=== PATIENT | female | born 1945 | race Caucasian/White ===

== ENCOUNTER → 2017-03-31 | Outpatient (CLI) | payer OTHER ==
[~2017-03-31] MED LIST: AMLO-114 PO; ASPCH81X PO; ATOR-24 PO; CARV12.52 PO; CLON0.5T3 PO; GLIM4TAB2 PO; HYDR2.5L TOP; INSDGI SC; LIDOCAINE PATCH EXT; LRT5 PO; METF-384 PO; MULT-513 PO; MULTCAP7 PO; RIVA1TAB4 PO; S-AD1TAB6 PO; TROL10LO EXT; VALS320T2 PO; VITAMIN D PO; ZOLP10TA6 PO
[2017-03-31 12:32] LABS: BASO % 0.3 %; BASO ABS # 0.02 K/uL (0-0.2); COMPLETE YES; EOS % 1.8 %; HEMATOCRIT 41.9 % (37-47); IG% 0.6 %; LYMPH % 30.3 %; LYMPH ABS # 2.37 K/uL (1.2-3.4); MEAN CELL VOLUME 95.4 fL (80-100); MEAN CORPUSCULAR HEMOGLOBIN 31.7 pg (25-34); MEAN CORPUSCULAR HGB CONC 33.2 g/dl (32-36); MEAN PLATELET VOLUME 11.5 fL (7.4-10.4); MONO % 8.7 %; NEUT % 58.3 %; PLATELET COUNT 155 K/uL (130-400); RED BLOOD COUNT 4.39 M/uL (4.2-5.4); WHITE BLOOD COUNT 7.81 K/uL (4.8-10.8)
[2017-03-31 12:38] LABS: CALCIUM 9.3 mg/dl (8.5-10.1)
[2017-03-31 12:41] LABS: ALT/SGPT 37 U/L (12-78); BLOOD UREA NITROGEN 18 mg/dl (7-18); BUN/CREATININE RATIO 24.1 (10-20); CARBON DIOXIDE 29 mmol/L (21-32); CHLORIDE 102 mmol/L (98-107); CHOLESTEROL 92 mg/dl (0-200); CREATININE 0.73 mg/dl (0.60-1.20); GLUCOSE 194 mg/dl (70-99); POTASSIUM 4.3 mmol/L (3.5-5.1); SODIUM 140 mmol/L (136-145); TRIGLYCERIDES 229 mg/dl (0-150); VERY LOW DENSITY LIPOPROT CALC 46 mg/dl
[2017-03-31 12:51] LABS: ALB/GLOB RATIO 0.8 (0.9-2); ALKALINE PHOSPHATASE 66 U/L (45-117); AST/SGOT 31 U/L (15-37); CHOLESTEROL/HDL RATIO 3.3; HDL CHOLESTEROL 28 mg/dl; LDL CHOLESTEROL CALCULATED 18 mg/dl
[2017-03-31 13:02] LABS: URINE APPEARANCE CLEAR (CLEAR); URINE BILIRUBIN NEG (NEG); URINE COLOR YELLOW; URINE NITRITE NEG (NEG); URINE PH 5.5 (4.5-7.5); URINE SPECIFIC GRAVITY 1.036 (1.000-1.030); UROBILINOGEN NEG (NEG); ZZUR CULT IF INDIC CLEAN CATCH NO
[2017-03-31 13:05] LABS: MANUAL MICROSCOPIC REQUIRED? NO; REVIEW REQ? NO
[2017-03-31 13:16] LABS: ESTIMATED AVERAGE GLUCOSE 200 mg/dl; HA1C FLAG Normal (Normal); RATIO 32.3 mcg/mg (0-30.0)
[2017-04-07 14:38] LABS: O&P SOURCE OTHER-STOOL
== END | disposition home or self-care (01) ==
LOC: C.LABBFT 10:00
PROVIDERS: ATTEND Internal Medicine Endocrinology, Diabetes & Metabolism
DX: R19.7 Diarrhea, unspecified (principal); E11.65 Type 2 diabetes mellitus with hyperglycemia; Z79.4 Long term (current) use of insulin

== ENCOUNTER → 2017-05-04 | Outpatient (CLI) | payer OTHER ==
[2017-05-04 16:27] LABS: BASO % 0.5 %; BASO ABS # 0.03 K/uL (0-0.2); COMPLETE YES; EOS % 3.9 %; HEMATOCRIT 40.3 % (37-47); IG% 0.2 %; LYMPH % 33.8 %; LYMPH ABS # 1.93 K/uL (1.2-3.4); MEAN CELL VOLUME 93.3 fL (80-100); MEAN CORPUSCULAR HEMOGLOBIN 31.3 pg (25-34); MEAN CORPUSCULAR HGB CONC 33.5 g/dl (32-36); MEAN PLATELET VOLUME 11.4 fL (7.4-10.4); MONO % 8.1 %; NEUT % 53.5 %; PLATELET COUNT 178 K/uL (130-400); RED BLOOD COUNT 4.32 M/uL (4.2-5.4); WHITE BLOOD COUNT 5.71 K/uL (4.8-10.8)
[2017-05-04 16:35] LABS: ALT/SGPT 68 U/L (12-78); AST/SGOT 64 U/L (15-37); BLOOD UREA NITROGEN 13 mg/dl (7-18); BUN/CREATININE RATIO 18.1 (10-20); CALCIUM 9.7 mg/dl (8.5-10.1); CARBON DIOXIDE 25 mmol/L (21-32); CHLORIDE 105 mmol/L (98-107); CREATININE 0.72 mg/dl (0.60-1.20); GLUCOSE 118 mg/dl (70-99); POTASSIUM 3.7 mmol/L (3.5-5.1); SODIUM 138 mmol/L (136-145)
[2017-05-04 16:38] LABS: ALB/GLOB RATIO 0.9 (0.9-2); ALKALINE PHOSPHATASE 67 U/L (45-117)
[2017-05-08 16:41] LABS: ALBUMIN 4.6 G/DL (3.8-4.8); FREE KAPPA 16.1 MG/L (3.3-19.4); FREE KAPPA/LAMBDA RATIO 0.69 (0.26-1.65); FREE LAMBDA 23.3 MG/L (5.7-26.3); GAMMA GLOBULIN 1.1 G/DL (0.8-1.7); MONOCLONAL PROTEIN BAND 1 0.8 G/DL (NOT DETECTED); TOTAL PROTEIN 8.5 G/DL (6.2-8.3)
== END | disposition home or self-care (01) ==
LOC: C.LABBFT 14:08
PROVIDERS: ATTEND Internal Medicine Hematology & Oncology
DX: D47.2 Monoclonal gammopathy (principal)

== ENCOUNTER → 2017-08-01 | Outpatient (CLI) | payer OTHER ==
[2017-08-01 12:26] LABS: BASO % 0.7 %; BASO ABS # 0.04 K/uL (0-0.2); COMPLETE YES; EOS % 3.7 %; HEMATOCRIT 39.3 % (37-47); IG% 0.2 %; LYMPH % 37.5 %; LYMPH ABS # 2.03 K/uL (1.2-3.4); MEAN CELL VOLUME 89.5 fL (80-100); MEAN CORPUSCULAR HEMOGLOBIN 30.1 pg (25-34); MEAN CORPUSCULAR HGB CONC 33.6 g/dl (32-36); MEAN PLATELET VOLUME 11.7 fL (7.4-10.4); MONO % 7.4 %; NEUT % 50.5 %; PLATELET COUNT 155 K/uL (130-400); RED BLOOD COUNT 4.39 M/uL (4.2-5.4); WHITE BLOOD COUNT 5.41 K/uL (4.8-10.8)
[2017-08-01 13:08] LABS: RATIO 264.1 mcg/mg (0-30.0)
[2017-08-01 13:13] LABS: ALT/SGPT 44 U/L (12-78); BLOOD UREA NITROGEN 14 mg/dl (7-18); BUN/CREATININE RATIO 21.8 (10-20); CALCIUM 9.7 mg/dl (8.5-10.1); CARBON DIOXIDE 25 mmol/L (21-32); CHLORIDE 103 mmol/L (98-107); CHOLESTEROL 109 mg/dl (0-200); CREATININE 0.66 mg/dl (0.60-1.20); GLUCOSE 173 mg/dl (70-99); POTASSIUM 3.7 mmol/L (3.5-5.1); SODIUM 139 mmol/L (136-145)
[2017-08-01 13:16] LABS: ALB/GLOB RATIO 0.8 (0.9-2); ALKALINE PHOSPHATASE 83 U/L (45-117); AST/SGOT 41 U/L (15-37); CHOLESTEROL/HDL RATIO 3.1; HDL CHOLESTEROL 35 mg/dl; LDL CHOLESTEROL CALCULATED 28 mg/dl; TRIGLYCERIDES 228 mg/dl (0-150); VERY LOW DENSITY LIPOPROT CALC 46 mg/dl
== END | disposition home or self-care (01) ==
LOC: C.LABBFT 08:25
PROVIDERS: ATTEND Nurse Practitioner
DX: E11.65 Type 2 diabetes mellitus with hyperglycemia (principal); R19.7 Diarrhea, unspecified; Z79.4 Long term (current) use of insulin; R10.819 Abdominal tenderness, unspecified site

== ENCOUNTER → 2017-09-29 | Outpatient (CLI) | payer OTHER ==
[2017-09-29 12:27] LABS: BASO % 0.5 %; BASO ABS # 0.03 K/uL (0-0.2); COMPLETE YES; EOS % 2.3 %; HEMATOCRIT 38.8 % (37-47); IG% 0.2 %; LYMPH % 24.4 %; MEAN CELL VOLUME 90.2 fL (80-100); MEAN CORPUSCULAR HEMOGLOBIN 30.7 pg (25-34); MEAN PLATELET VOLUME 11.3 fL (7.4-10.4); MONO % 11.3 %; NEUT % 61.3 %; PLATELET COUNT 184 K/uL (130-400); WHITE BLOOD COUNT 6.57 K/uL (4.8-10.8)
[2017-09-29 12:35] LABS: ALT/SGPT 36 U/L (12-78); BLOOD UREA NITROGEN 15 mg/dl (7-18); BUN/CREATININE RATIO 22.3 (10-20); CALCIUM 9.5 mg/dl (8.5-10.1); CARBON DIOXIDE 28 mmol/L (21-32); CHLORIDE 100 mmol/L (98-107); CREATININE 0.67 mg/dl (0.60-1.20); GLUCOSE 141 mg/dl (70-99); POTASSIUM 3.6 mmol/L (3.5-5.1); SODIUM 136 mmol/L (136-145)
[2017-09-29 12:37] LABS: ALB/GLOB RATIO 0.7 (0.9-2); ALKALINE PHOSPHATASE 103 U/L (45-117); AST/SGOT 37 U/L (15-37)
[2017-10-02 16:15] LABS: ALBUMIN 3.9 G/DL (3.8-4.8); FREE KAPPA 20.5 MG/L (3.3-19.4); FREE KAPPA/LAMBDA RATIO 0.71 (0.26-1.65); FREE LAMBDA 28.7 MG/L (5.7-26.3); GAMMA GLOBULIN 1.1 G/DL (0.8-1.7); MONOCLONAL PROTEIN BAND 1 0.7 G/DL (NOT DETECTED)
== END | disposition home or self-care (01) ==
LOC: C.LABBFT 08:53
PROVIDERS: ATTEND Internal Medicine Hematology & Oncology
DX: M85.80 Other specified disorders of bone density and structure, unspecified site (principal); D47.2 Monoclonal gammopathy

== ENCOUNTER → 2018-01-30 | Outpatient (CLI) | payer OTHER | END | disposition home or self-care (01) | LOC: C.PATHSPEC 16:08 | PROVIDERS: ATTEND Obstetrics & Gynecology | DX: N90.89 Other specified noninflammatory disorders of vulva and perineum (principal); L29.2 Pruritus vulvae ==

== ENCOUNTER → 2018-03-08 | Outpatient (CLI) | payer OTHER ==
[~2018-03-08] MED LIST changes: +OPTIRAY 320 IV PRN
--- NOTE | 2018-03-08 13:22 | DIAGNOSTIC IMAGING REPORT ---
ABD/PELVIS IV AND ORAL CONT CLINICAL HISTORY: 72 years-old Female presenting with R14.0 bloating. TECHNIQUE: Multidetector CT of the abdomen and pelvis was performed after the administration of oral and intravenous contrast. IV contrast: 94 mL of Optiray 320. A dose lowering technique was used consistent with the principles of ALARA (as low as reasonably achievable). COMPARISON: 05/24/2012. CT DOSE (mGy.cm): The estimated cumulative dose is 870.38 mGycm. FINDINGS: Graphite Pan Drier Tender topogram: Partially visualized pacer leads to the right atrium and right ventricular apex. Lung bases: Minimal basilar opacities, likely atelectasis. Normal heart size. Coronary artery and aortic valve calcification. Trace bilateral pleural effusions. No pericardial effusion. Liver: Relative hypertrophy of the left hepatic lobe and atrophy of the right hepatic lobe. The liver has a micronodular contour, suggesting cirrhosis. Allowing for the single phase of contrast, subcentimeter hypodensity at the hepatic dome (series 3 image 72), likely hepatic cyst or hamartoma. No other lesion. Patent hepatic vasculature. Biliary: No intrahepatic or extrahepatic biliary ductal dilatation. Normal gallbladder. Pancreas: Extensive vascular calcification in the region of the pancreatic head. Less likely these may be coarse parenchymal calcifications. Mild overall pancreatic parenchymal atrophy. The morphology of the pancreatic head could suggest an annular pancreas. Spleen: Normal. Adrenal glands: Subcentimeter nodule in the medial limb of the right adrenal gland is unchanged in size and indeterminate by density on this contrast-enhanced exam though stability since 2011 favors a benign adenoma. Left adrenal gland normal. Kidneys and ureters: Multiple small hypodensities in the bilateral kidneys likely cysts. No nephrolithiasis. Mild urothelial thickening greater on the right. No hydronephrosis. Mid to distal ureters poorly visualized secondary to the large volume ascites. Bladder: Incompletely evaluated secondary to underdistention. Pelvic organs: Calcified fibroids noted in the uterus. Ovaries and adnexa are within normal limits though mildly prominent for the patient's age. Bowel: Mild colonic wall thickening in the left colon, nonspecific. The appendix is normal. No bowel obstruction. Trace hiatal hernia may be present. Mild wall thickening of the stomach and small bowel also suggested. Peritoneal cavity: Large volume ascites. No free intraperitoneal gas. Hyperenhancing soft tissue cake within the omentum in the left anterior abdomen (series 3 image 275). Peritoneal thickening evident. Enhancing soft tissue noted along the right pelvic peritoneum (series 3 image 371). Additional soft tissue nodules suggested along the lateral right abdomen (series 3 image 243). Lymph nodes: Multiple enlarged pericaval and portacaval lymph nodes. An index node in the portacaval region measures 10 mm in the short axis (series 3 image 371). An index node in the aortocaval region measures 11 mm in the short axis (series 3 image 188). No pathologically enlarged lymph nodes in the pelvis. Vasculature: Atherosclerosis of the normal caliber abdominal aorta. IVC patent. No varices are apparent. Abdominal wall: Normal. Musculoskeletal: Normal. IMPRESSION: 1. Findings highly suspicious for peritoneal metastatic disease with hyperenhancing soft tissue cake within the omentum, peritoneal thickening, large volume ascites, and soft tissue peritoneal nodularity. Differential considerations include an ovarian/adnexal origin or primary peritoneal malignancy. 2. Upper abdominal lymphadenopathy suspicious for metastatic disease though these could be reactive given the presence of suspected cirrhosis. 3. Findings suggest cirrhosis. 4. Wall thickening of the colon could suggest portal colopathy. No splenomegaly or additional evidence of portal hypertension. 5. 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 Electronically signed by: Edmund Nagy M.D. 03/08/2018 1:20 PM Dictated Date/Time: 03/08/2018 1:05 PM
== END | disposition home or self-care (01) ==
LOC: C.CTS 12:16
PROVIDERS: ATTEND Physician Assistant Medical
DX: R14.0 Abdominal distension (gaseous) (principal); R59.0 Localized enlarged lymph nodes

== ENCOUNTER → 2018-05-18 | Outpatient (CLI) | payer OTHER ==
[~2018-05-18] MED LIST changes: -AMLO-114 PO; +AMLO10TA3 PO; -CLON0.5T3 PO; +CLON0.5T9 PO; +DULA0.5I SQ; +HYDR-5688 PO; +INSDGI INJ; -INSDGI SC; -LRT5 PO; -MULTCAP7 PO; -OPTIRAY 320 IV PRN; -RIVA1TAB4 PO; -S-AD1TAB6 PO; -VITAMIN D PO; +cbd oil TOP
[2018-05-18 12:37] LABS: ALBUMIN 2.8 gm/dl (3.4-5.0); ALKALINE PHOSPHATASE 85 U/L (45-117); ALT/SGPT 21 U/L (12-78); AST/SGOT 41 U/L (15-37); BLOOD UREA NITROGEN 15 mg/dl (7-18); CALCIUM 8.5 mg/dl (8.5-10.1); CARBON DIOXIDE 27 mmol/L (21-32); CREATININE 0.81 mg/dl (0.60-1.20); GLUCOSE 129 mg/dl (70-99); HEMATOCRIT 30.8 % (37-47); MEAN CELL VOLUME 90.1 fL (80-100); MEAN CORPUSCULAR HEMOGLOBIN 29.2 pg (25-34); MEAN CORPUSCULAR HGB CONC 32.5 g/dl (32-36); MEAN PLATELET VOLUME 9.8 fL (7.4-10.4); PLATELET COUNT 162 K/uL (130-400); POTASSIUM 3.6 mmol/L (3.5-5.1); RED CELL DISTRIBUTION WIDTH CV 14.8 % (11.5-14.5); RED CELL DISTRIBUTION WIDTH SD 48.2 fL (36.4-46.3); SODIUM 137 mmol/L (136-145); TOTAL PROTEIN 8.1 gm/dl (6.4-8.2); WHITE BLOOD COUNT 1.53 K/uL (4.8-10.8)
[2018-05-18 12:44] LABS: BASO % 0.7 %; BASO ABS # 0.01 K/uL (0-0.2); EOS % 3.9 %; EOS ABS # 0.06 K/uL (0-0.5); IG# 0.01 K/uL (0.00-0.02); LYMPH ABS # 1.01 K/uL (1.2-3.4); MONO % 9.8 %; MONO ABS # 0.15 K/uL (0.11-0.59); NEUT % 18.9 %; NEUT ABS # 0.29 K/uL (1.4-6.5)
== END | disposition home or self-care (01) ==
LOC: C.LABSPEC 11:46
PROVIDERS: ATTEND Internal Medicine Hematology & Oncology
DX: C56.9 Malignant neoplasm of unspecified ovary (principal)

== ENCOUNTER → 2018-05-25 | Outpatient (CLI) | payer OTHER ==
[2018-05-25 13:08] LABS: BASO % 0.4 %; BASO ABS # 0.02 K/uL (0-0.2); EOS % 1.2 %; EOS ABS # 0.07 K/uL (0-0.5); HEMATOCRIT 30.3 % (37-47); HEMOGLOBIN 9.7 g/dL (12.0-16.0); IG# 0.02 K/uL (0.00-0.02); LYMPH % 25.4 %; LYMPH ABS # 1.44 K/uL (1.2-3.4); MEAN CELL VOLUME 90.7 fL (80-100); MEAN PLATELET VOLUME 9.5 fL (7.4-10.4); MONO % 12.7 %; MONO ABS # 0.72 K/uL (0.11-0.59); NEUT % 59.9 %; NEUT ABS # 3.39 K/uL (1.4-6.5); PLATELET COUNT 181 K/uL (130-400); RED CELL DISTRIBUTION WIDTH CV 16.4 % (11.5-14.5); RED CELL DISTRIBUTION WIDTH SD 52.5 fL (36.4-46.3); WHITE BLOOD COUNT 5.66 K/uL (4.8-10.8)
[2018-05-25 13:29] LABS: ALT/SGPT 23 U/L (12-78); AST/SGOT 52 U/L (15-37); BLOOD UREA NITROGEN 20 mg/dl (7-18); CALCIUM 8.9 mg/dl (8.5-10.1); CARBON DIOXIDE 28 mmol/L (21-32); CREATININE 0.93 mg/dl (0.60-1.20); GLUCOSE 94 mg/dl (70-99); POTASSIUM 3.9 mmol/L (3.5-5.1); SODIUM 137 mmol/L (136-145)
[2018-05-25 13:31] LABS: ALKALINE PHOSPHATASE 102 U/L (45-117); TOTAL PROTEIN 8.3 gm/dl (6.4-8.2)
== END | disposition home or self-care (01) ==
LOC: C.LABSPEC 12:31
PROVIDERS: ATTEND Nurse Practitioner Family
DX: C56.9 Malignant neoplasm of unspecified ovary (principal)

== ENCOUNTER → 2018-06-01 | Outpatient (CLI) | payer OTHER ==
[~2018-06-01] MED LIST changes: +ASPI81TA28 PO; +CARV12.5 PO; +DEXA1TAB16 PO; +DULA1INJ SQ; +GLIM1TAB2 PO; +LPT20 PO; +MRPSR/15 PO; +OLAN1TAB7 PO; +ONDA-170 PO; +PROC10TA PO; +RIVA1TAB4 PO; +RXC/5 PO; +ZOLP10TA PO
[2018-06-01 12:30] LABS: EOS % 0.9 %; EOS ABS # 0.04 K/uL (0-0.5); HEMATOCRIT 30.8 % (37-47); HEMOGLOBIN 9.9 g/dL (12.0-16.0); IG# 0.01 K/uL (0.00-0.02); LYMPH % 29.7 %; LYMPH ABS # 1.27 K/uL (1.2-3.4); MEAN CELL VOLUME 90.1 fL (80-100); MEAN CORPUSCULAR HEMOGLOBIN 28.9 pg (25-34); MEAN CORPUSCULAR HGB CONC 32.1 g/dl (32-36); MEAN PLATELET VOLUME 10.1 fL (7.4-10.4); MONO % 0.9 %; MONO ABS # 0.04 K/uL (0.11-0.59); NEUT % 68.3 %; NEUT ABS # 2.91 K/uL (1.4-6.5); PLATELET COUNT 167 K/uL (130-400); RED CELL DISTRIBUTION WIDTH CV 15.9 % (11.5-14.5); RED CELL DISTRIBUTION WIDTH SD 52.2 fL (36.4-46.3); WHITE BLOOD COUNT 4.27 K/uL (4.8-10.8)
[2018-06-01 12:58] LABS: ALKALINE PHOSPHATASE 92 U/L (45-117); ALT/SGPT 31 U/L (12-78); AST/SGOT 61 U/L (15-37); BLOOD UREA NITROGEN 17 mg/dl (7-18); CALCIUM 9.2 mg/dl (8.5-10.1); CARBON DIOXIDE 29 mmol/L (21-32); CREATININE 0.69 mg/dl (0.60-1.20); GLUCOSE 119 mg/dl (70-99); POTASSIUM 3.8 mmol/L (3.5-5.1); SODIUM 134 mmol/L (136-145); TOTAL PROTEIN 8.2 gm/dl (6.4-8.2)
== END | disposition home or self-care (01) ==
LOC: C.LABSPEC 12:15
PROVIDERS: ATTEND Internal Medicine Hematology & Oncology
DX: C56.9 Malignant neoplasm of unspecified ovary (principal)

== ENCOUNTER 2018-06-08 09:47 | Emergency (ER) | payer OTHER ==
[~2018-06-08 09:47] MED LIST changes: -ASPI81TA28 PO; -CARV12.5 PO; -DEXA1TAB16 PO; -DULA1INJ SQ; -GLIM1TAB2 PO; -LPT20 PO; -MRPSR/15 PO; -OLAN1TAB7 PO; -ONDA-170 PO; -PROC10TA PO; -RIVA1TAB4 PO; -RXC/5 PO; -ZOLP10TA PO
[2018-06-08 09:53] VITALS: TEMP 36.7; Ht 170.2 cm
--- NOTE | 2018-06-08 10:00 | EMERGENCY ROOM VISIT NOTE ---
History Report prepared by Yvonne: Rula Eubanks Under the Supervision of: Dr. Eliu Laboy M.D. First contact with patient: 09:57 Chief Complaint: ABDOMINAL PAIN Stated Complaint: FLUID IN ABD History of Present Illness The patient is a 73 year old female who presents to the Emergency Room with complaints of a distended abdomen. She states she has fluid in her abdomen and needs to have a paracentesis (she has had 1 in the past). She describes her feeling as a fullness but has no associated abdominal pain. Her last bowel movement was this morning and is passing gas without difficulty. Pt denies any fevers, hematochezia, melena, vaginal bleeding, hematuria. Dr. Lozano [facility] is her oncologist. 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 A total of ten systems were reviewed and were otherwise negative. Past Medical & Surgical Medical Problems: (1) Diabetes (2) Heart disease (3) High blood pressure (4) Ovarian cancer Family History Cancer FH: diabetes mellitus High blood pressure Lung disease Social History Smoking Status: Never Smoker Smokeless Tobacco Use: No Alcohol Use: none Marital Status: Housing Status: lives with significant other Occupation Status: retired Current/Historical Medications Scheduled Amlodipine (Norvasc), 10 MG PO DAILY Aspirin (Aspirin Ec), 81 MG PO DAILY Atorvastatin (Lipitor), 20 MG PO DAILY Carvedilol (Coreg), 12.5 MG PO BIDM Dulaglutide (Trulicity), 1 PEN SQ WK Glimepiride (Glimepiride), 2-3 MG PO DAILY Olanzapine (Zyprexa), 2.5 MG PO UD Rivaroxaban (Xarelto), 20 MG PO DAILY Valsartan/Hctz (Diovan Hct 320MG/25MG), 1 TAB PO DAILY Zolpidem Tartrate (Ambien), 5-10 MG PO HS Scheduled PRN Dexamethasone (Dexamethasone), 20 MG PO UD PRN for CHEMO Morphine Sulfate (Morphine Sulfate ER), 15 MG PO BID PRN for Pain Ondansetron Hcl (Zofran), 8 MG PO Q8 PRN for Nausea Oxycodone HCl (Oxycodone HCl), 5-10 MG PO Q4 PRN for Pain Prochlorperazine Maleate (Compazine), 10 MG PO Q6H PRN for Nausea Allergies Coded Allergies: Sulfa Drugs (Verified Allergy, Mild, ITCHING, 06/08/18) ANDREW Inhibitors (Verified Allergy, Unknown, UNKNOWN, 06/08/18) Atorvastatin (Verified Allergy, Unknown, UNKNOWN, 06/08/18) CI Pigment Blue 63 (Verified Allergy, Unknown, UNKNOWN, 06/08/18) Citalopram (Verified Allergy, Unknown, UNKNOWN, 06/08/18) Duloxetine (Verified Allergy, Unknown, UNKNOWN, 06/08/18) Felodipine (Verified Allergy, Unknown, UNKNOWN, 06/08/18) Fluoxetine (Verified Allergy, Unknown, UNKNOWN, 06/08/18) POLLEN (Verified Allergy, Unknown, STUFFY NOSE CONGESTION, 06/08/18) Paroxetine (Verified Allergy, Unknown, UNKNOWN, 06/08/18) Pregabalin (Verified Allergy, Unknown, UNKNOWN, 06/08/18) Sertraline (Verified Allergy, Unknown, UNKNOWN, 06/08/18) Physical Exam Vital Signs Date Time Temp Pulse Resp B/P (MAP) Pulse Ox O2 Delivery O2 Flow Rate FiO2 06/08/18 12:06 70 20 149/73 96 06/08/18 09:53 36.7 61 18 156/82 95 Room Air Physical Exam Physical Exam GENERAL: She is oriented to person, place, and time. She appears well- developed and well-nourished. She does not appear distressed. HENT: Exam performed. Head: Normocephalic and atraumatic. Right Ear: External ear normal. No mastoid tenderness. Left Ear: External ear normal. No mastoid tenderness. Mouth/Throat: The oropharynx is clear and moist. No trismus in the jaw. No dental abscesses or uvula swelling. No oropharyngeal exudate or tonsillar abscesses. EYES: Conjunctivae and EOM are normal. Pupils are equal, round, and reactive to light. Right eye exhibits no discharge. Left eye exhibits no discharge. No scleral icterus. NECK: Normal range of motion. Neck supple. No JVD present. No spinous process tenderness present. No carotid bruit present. No rigidity. No tracheal deviation and normal range of motion present. No Brudzinski's sign and no Kernig 's sign noted. CV: Normal rate, regular rhythm, normal heart sounds and intact distal pulses. There is no peripheral edema. Palpable radial pulses bue. PULM/CHEST: Effort normal and breath sounds normal. No respiratory distress. No stridor. She has no wheezes. She has no rales. Chest Wall: She exhibits no tenderness. ABD: The abdomen is soft. Bowel sounds are normal. Abdomen is distended. Positive fluid wave. No mass is present. There is no tenderness. There is no rebound, no guarding, no Rubi's sign and no tenderness at McBurney's point. Rovsig negative MUSC/SKEL: Normal range of motion. There is no peripheral edema, tenderness or deformity. LYMPH: No cervical adenopathy. NEURO: She is alert and oriented to person, place, and time. She has normal strength. No cranial nerve deficit or sensory deficit. Coordination and gait normal. GCS eye subscore is 4. GCS verbal subscore is 5. GCS motor subscore is 6. Cerebellar tests wnl. SKIN: Skin is warm and dry. She is not diaphoretic. PSYCH: She has a normal mood and affect. Behavior is normal. Judgment and thought content normal. Medical Decision & Procedures Laboratory Results Laboratory results reviewed by [facility] ED Course 0958: The patient was evaluated in room B8. A complete history and physical exam was performed. 1124: Her labs from this morning were reviewed. WBC 1.11. Hemoglobin and platelet count stable. Renal profile wnl. Coagulation factors wnl. Vital signs are stable. Repeat abdominal exam shows no tenderness on palpation of the abdomen. There is little concern for SBP given that the pt has no abdominal tenderness and no fevers. Discussed the patient's case with Dr. Lozano. [facility]. He states he knows the patient well. He states he knows the pt has had ascites for quite some time. Given her labs this morning, he states he does not prefer that she have her paracentesis done while she is neutropenic and prefers for her to have it done as an outpatient. Neutropenia is thought to be due to the pt's chemotherapy. He also states that the patient follows up at [facility] in [place] and that the surgeons there prefer her not to have unnecessary paracenteses for her ascites. Given this, we will hold off on performing any paracentesis in the emergency department today. Patient will be discharged will follow up with Dr. Lozano in the office. She will have repeat labs done next week and when her white blood cell count has normalized she will have an outpatient paracentesis. Patient and family member at bedside are in agreement with this plan. DISCHARGE - Plan of care discussed with patient and questions answered. The patient was given both verbal and printed discharge instructions. The patient verbalized understanding and ability to comply. The patient is to seek outpatient follow up as noted in the discharge instructions. The patient verbalized understanding and ability to comply. The patient is discharged in stable condition. The patient was instructed to return for worsening symptoms. Medical Decision Her labs from this morning were reviewed. WBC 1.11. Hemoglobin and platelet count stable. Renal profile wnl. Coagulation factors wnl. Vital signs are stable. Repeat abdominal exam shows no tenderness on palpation of the abdomen. There is little concern for SBP given that the pt has no abdominal tenderness and no fevers. Discussed the patient's case with Dr. Lozano. [facility]. He states he knows the patient well. He states he knows the pt has had ascites for quite some time. Given her labs this morning, he states he does not prefer that she have her paracentesis done while she is neutropenic and prefers for her to have it done as an outpatient. Neutropenia is thought to be due to the pt 's chemotherapy. He also states that the patient follows up at [facility] in [place] and that the surgeons there prefer her not to have unnecessary paracenteses for her ascites. Given this, we will hold off on performing any paracentesis in the emergency department today. Patient will be discharged will follow up with Dr. Lozano in the office. She will have repeat labs done next week and when her white blood cell count has normalized she will have an outpatient paracentesis. Patient and family member at bedside are in agreement with this plan. DISCHARGE - Plan of care discussed with patient and questions answered. The patient was given both verbal and printed discharge instructions. The patient verbalized understanding and ability to comply. The patient is to seek outpatient follow up as noted in the discharge instructions. The patient verbalized understanding and ability to comply. The patient is discharged in stable condition. The patient was instructed to return for worsening symptoms. Medication Reconcilliation Current Medication List: was personally reviewed by me Consults Time Called: 1107 Consulting Physician: Dr. Singletary. [facility] Returned Call: 1124 Discussed the patient's case with Dr. Lozano. [facility]. He states he knows the patient well. He states he knows the pt has had ascites for quite some time. Given her labs this morning, he states he does not prefer that she have her paracentesis done while she is neutropenic and prefers for her to have it done as an outpatient. Neutropenia is thought to be due to the pt's chemotherapy. He also states that the patient follows up at [facility] in [place] and that the surgeons there prefer her not to have unnecessary paracenteses for her ascites. Impression Primary Impression: Ascites Scribe Attestation The scribe's documentation has been prepared under my direction and personally reviewed by me in its entirety. I confirm that the note above accurately reflects all work, treatment, procedures, and medical decision making performed by me. The chart was completed utilizing [employer] Speech voice recognition software. Grammatical errors, random word insertions, pronoun errors, and incomplete sentences are an occasional consequence of this system due to software limitations, ambient noise, and hardware issues. Any formal questions or concerns about the content, text, or information contained within the body of this dictation should be directly addressed to the physician for clarification. Departure Information Dispostion Home / Self-Care Referrals No Doctor, Assigned (PCP) Forms Call Back Authorization, HOME CARE DOCUMENTATION FORM, IMPORTANT VISIT INFORMATION Patient Instructions [facility] Additional Instructions Return to the emergency department if you develop difficulty breathing, fever greater than 100.4, or severe sharp abdominal pain. Problem Qualifiers Primary Impression: Ascites Ascites type: malignant Qualified Codes: R18.0 - Malignant ascites
[2018-06-08] MEDS ORDERED: ASPI81TA28 PO (10:55)
[2018-06-08] MEDS ORDERED: ZOLP10TA PO (10:55)
[2018-06-08] MEDS ORDERED: VALS320T2 PO (10:55)
[2018-06-08] MEDS ORDERED: PROC10TA PO (10:55)
[2018-06-08] MEDS ORDERED: CARV12.5 PO (10:55)
[2018-06-08] MEDS ORDERED: RIVA1TAB4 PO (10:55)
[2018-06-08] MEDS ORDERED: MRPSR/15 PO (10:55)
[2018-06-08] MEDS ORDERED: OLAN1TAB7 PO (10:55)
[2018-06-08] MEDS ORDERED: LPT20 PO (10:55)
[2018-06-08] MEDS ORDERED: DEXA1TAB16 PO (10:55)
[2018-06-08] MEDS ORDERED: DULA1INJ SQ (10:55)
[2018-06-08] MEDS ORDERED: RXC/5 PO (10:55)
[2018-06-08] MEDS ORDERED: GLIM1TAB2 PO (10:55)
[2018-06-08] MEDS ORDERED: AMLO10TA3 PO (10:55)
[2018-06-08] MEDS ORDERED: ONDA-170 PO (10:55)
[2018-06-08 12:06] VITALS: BP 149/73; PULSE 70; O2SAT 96
== END 2018-06-08 12:06 | disposition home or self-care (01) ==
LOC: C.EDB 09:48
DX: C56.9 Malignant neoplasm of unspecified ovary (principal); R18.0 Malignant ascites; D70.9 Neutropenia, unspecified; I10 Essential (primary) hypertension; Z79.82 Long term (current) use of aspirin; E11.9 Type 2 diabetes mellitus without complications; Z79.4 Long term (current) use of insulin; Z79.01 Long term (current) use of anticoagulants; Z88.2 Allergy status to sulfonamides; Z88.8 Allergy status to other drugs, medicaments and biological substances; Z91.02 Food additives allergy status; Z91.048 Other nonmedicinal substance allergy status

== ENCOUNTER → 2018-06-08 | Outpatient (CLI) | payer OTHER ==
[2018-06-08 10:05] LABS: HEMATOCRIT 29.2 % (37-47); HEMOGLOBIN 9.3 g/dL (12.0-16.0); MEAN CELL VOLUME 90.1 fL (80-100); MEAN CORPUSCULAR HEMOGLOBIN 28.7 pg (25-34); MEAN CORPUSCULAR HGB CONC 31.8 g/dl (32-36); MEAN PLATELET VOLUME 9.7 fL (7.4-10.4); PLATELET COUNT 168 K/uL (130-400); RED CELL DISTRIBUTION WIDTH CV 15.8 % (11.5-14.5); WHITE BLOOD COUNT 1.11 K/uL (4.8-10.8)
[2018-06-08 10:07] LABS: INR 1.2 (0.9-1.1)
[2018-06-08 10:23] LABS: BASO % 0.9 %; BASO ABS # 0.01 K/uL (0-0.2); EOS % 2.7 %; EOS ABS # 0.03 K/uL (0-0.5); LYMPH % 61.3 %; LYMPH ABS # 0.68 K/uL (1.2-3.4); MONO % 4.5 %; MONO ABS # 0.05 K/uL (0.11-0.59); NEUT % 30.6 %; NEUT ABS # 0.34 K/uL (1.4-6.5)
[2018-06-08 10:24] LABS: ALBUMIN 3.1 gm/dl (3.4-5.0); ALT/SGPT 28 U/L (12-78); AST/SGOT 43 U/L (15-37); BLOOD UREA NITROGEN 12 mg/dl (7-18); CALCIUM 9.2 mg/dl (8.5-10.1); CARBON DIOXIDE 28 mmol/L (21-32); CREATININE 0.68 mg/dl (0.60-1.20); GLUCOSE 155 mg/dl (70-99); POTASSIUM 3.5 mmol/L (3.5-5.1); SODIUM 135 mmol/L (136-145)
[2018-06-08 10:27] LABS: ALKALINE PHOSPHATASE 99 U/L (45-117); TOTAL PROTEIN 8.3 gm/dl (6.4-8.2)
== END | disposition home or self-care (01) ==
LOC: C.LABSPEC 09:42
PROVIDERS: ATTEND Internal Medicine Hematology & Oncology
DX: C56.9 Malignant neoplasm of unspecified ovary (principal)

== ENCOUNTER → 2018-06-11 | Outpatient (CLI) | payer OTHER ==
[~2018-06-11] MED LIST changes: -ASPCH81X PO; +ASPI81TA28 PO; -ATOR-24 PO; +CARV12.5 PO; -CARV12.52 PO; -CLON0.5T9 PO; +DEXA1TAB16 PO; -DULA0.5I SQ; +DULA1INJ SQ; +GLIM1TAB2 PO; -GLIM4TAB2 PO; -HYDR-5688 PO; -HYDR2.5L TOP; -INSDGI INJ; -LIDOCAINE PATCH EXT; +LPT20 PO; -METF-384 PO; +MRPSR/15 PO; -MULT-513 PO; +OLAN1TAB7 PO; +ONDA-170 PO; +PROC10TA PO; +RIVA1TAB4 PO; +RXC/5 PO; -TROL10LO EXT; +ZOLP10TA PO; -ZOLP10TA6 PO; -cbd oil TOP
[2018-06-11 09:16] LABS: ALBUMIN 3.1 gm/dl (3.4-5.0); BLOOD UREA NITROGEN 18 mg/dl (7-18); CALCIUM 9.2 mg/dl (8.5-10.1); CARBON DIOXIDE 28 mmol/L (21-32); CREATININE 0.98 mg/dl (0.60-1.20); GLUCOSE 303 mg/dl (70-99); POTASSIUM 4.1 mmol/L (3.5-5.1); SODIUM 132 mmol/L (136-145)
[2018-06-11 09:24] LABS: ALKALINE PHOSPHATASE 115 U/L (45-117); ALT/SGPT 33 U/L (12-78); AST/SGOT 43 U/L (15-37); TOTAL PROTEIN 8.6 gm/dl (6.4-8.2)
[2018-06-11 09:38] LABS: HEMATOCRIT 28.6 % (37-47); HEMOGLOBIN 9.3 g/dL (12.0-16.0); MEAN CELL VOLUME 90.2 fL (80-100); MEAN CORPUSCULAR HEMOGLOBIN 29.3 pg (25-34); MEAN CORPUSCULAR HGB CONC 32.5 g/dl (32-36); MEAN PLATELET VOLUME 9.6 fL (7.4-10.4); PLATELET COUNT 192 K/uL (130-400); RED CELL DISTRIBUTION WIDTH SD 50.7 fL (36.4-46.3); WHITE BLOOD COUNT 0.76 K/uL (4.8-10.8)
[2018-06-11 09:41] LABS: IG# 0.01 K/uL (0.00-0.02); LYMPH % 44.7 %; LYMPH ABS # 0.34 K/uL (1.2-3.4); MONO % 1.3 %; MONO ABS # 0.01 K/uL (0.11-0.59); NEUT % 52.7 %
== END | disposition home or self-care (01) ==
LOC: C.LABSPEC 08:43
PROVIDERS: ATTEND Internal Medicine Hematology & Oncology
DX: C56.9 Malignant neoplasm of unspecified ovary (principal)

== ENCOUNTER → 2018-06-15 | Outpatient (CLI) | payer OTHER ==
[~2018-06-15] MED LIST changes: +ENOX80IN SQ; +WARF5TAB90 PO
[2018-06-15 12:24] LABS: BASO % 0.2 %; BASO ABS # 0.01 K/uL (0-0.2); EOS % 1.1 %; EOS ABS # 0.05 K/uL (0-0.5); HEMATOCRIT 31.8 % (37-47); HEMOGLOBIN 10.3 g/dL (12.0-16.0); IG# 0.03 K/uL (0.00-0.02); LYMPH ABS # 1.56 K/uL (1.2-3.4); MEAN CELL VOLUME 90.3 fL (80-100); MEAN CORPUSCULAR HEMOGLOBIN 29.3 pg (25-34); MEAN CORPUSCULAR HGB CONC 32.4 g/dl (32-36); MEAN PLATELET VOLUME 9.5 fL (7.4-10.4); MONO % 11.9 %; MONO ABS # 0.53 K/uL (0.11-0.59); NEUT % 51.1 %; NEUT ABS # 2.28 K/uL (1.4-6.5); PLATELET COUNT 187 K/uL (130-400); RED CELL DISTRIBUTION WIDTH CV 16.8 % (11.5-14.5); WHITE BLOOD COUNT 4.46 K/uL (4.8-10.8)
[2018-06-15 12:43] LABS: ALBUMIN 3.2 gm/dl (3.4-5.0); ALKALINE PHOSPHATASE 110 U/L (45-117); ALT/SGPT 42 U/L (12-78); AST/SGOT 51 U/L (15-37); BLOOD UREA NITROGEN 16 mg/dl (7-18); CARBON DIOXIDE 27 mmol/L (21-32); CREATININE 0.82 mg/dl (0.60-1.20); GLUCOSE 144 mg/dl (70-99); POTASSIUM 3.6 mmol/L (3.5-5.1); SODIUM 137 mmol/L (136-145); TOTAL PROTEIN 8.6 gm/dl (6.4-8.2)
== END | disposition home or self-care (01) ==
LOC: C.LABSPEC 12:00
PROVIDERS: ATTEND Internal Medicine Hematology & Oncology
DX: C56.9 Malignant neoplasm of unspecified ovary (principal)

== ENCOUNTER 2018-06-22 14:41 | Emergency (ER) | payer OTHER ==
[~2018-06-22] VITALS: Ht 167.6 cm; Wt 63.0 kg
[~2018-06-22 14:41] MED LIST changes: -CLON0.5T9 PO; -ENOX80IN SQ; -OPTIRAY 320 IV PRN; -WARF5TAB90 PO
[2018-06-22 14:59] VITALS: TEMP 36.5; Ht 167.6 cm; Wt 63.0 kg
--- NOTE | 2018-06-22 16:15 | EMERGENCY ROOM VISIT NOTE ---
ED Visit Note First contact with patient: 15:48 CHIEF COMPLAINT: Pulmonary embolism on CT scan today HISTORY OF PRESENTING ILLNESS: This is a 73-year-old female with past medical history of ovarian cancer, atrial fibrillation on Xarelto, pacemaker, hypertension, type 2 diabetes, who presents to the emergency department with concern for abnormal CT scan today. Patient states that she was notified by her oncologist that her CT chest showed a pulmonary embolism. Patient is on treatment for ovarian cancer, her last chemotherapy treatment was 2-1/2 weeks ago, she is not receiving any radiation. She reports chronic back pain and shortness of breath secondary to abdominal ascites, but denies any increase in her pain or shortness of breath, denies chest pain, denies cough or hemoptysis, denies any recent trauma or falls, and denies any recent long trips. She denies any leg pain or swelling. She is on Xarelto for management of her atrial fibrillation, she denies any previous history of blood clots. She does note that she stopped her Xarelto for 1 day this week to have a paracentesis done on Monday, but she denies missing any other doses recently. REVIEW OF SYSTEMS: A complete 10 point review of systems was reviewed with the patient with pertinent positives and negatives as per history of present illness. All else were negative. PAST MEDICAL HISTORY: Reviewed in chart, see problem list below. SOCIAL HISTORY: Lives at home with her . Denies tobacco use. ALLERGIES: Reviewed in chart, see below. PHYSICAL EXAM: CONSTITUTIONAL: Pleasant and cooperative. No acute distress. Well appearing and well nourished. HEENT: Normocephalic, atraumatic. Pupils equal, round and reactive to light, EOMI. TMs normal. Pharynx normal. NECK: Supple, full active range of motion without discomfort. RESPIRATORY: Clear to auscultation bilaterally with no wheezing, crackles, rhonchi or stridor. Equal expansion bilaterally. CARDIOVASCULAR: Regular rate and rhythm with no murmurs, rubs or gallops. Normal peripheral perfusion. No edema. GASTROINTESTINAL: Soft, nontender, distended. No palpable masses or HSM. Bowel sounds present in all quadrants. MUSCULOSKELETAL: Full range of motion of all joints without discomfort. INTEGUMENTARY: No rash or other significant dermatologic conditions noted. NEUROLOGIC: Alert and oriented X 4 with normal affect. Normal strength and sensation in all 4 extremities. No focal neurologic deficits noted. Normal speech. Normal gait observed. ED COURSE AND MEDICAL DECISION MAKING: CC: Patient presenting with complaint of pulmonary embolism on CT scan today DIFFERENTIAL DIAGNOSIS: Includes, but not limited to pulmonary embolism, DVT, failed anticoagulation therapy, among others. INTERPRETATION OF LABS: No leukocytosis or leukopenia, mild anemia consistent with baseline, normal platelets, no significant electrolyte abnormalities, normal renal function, normal liver enzymes. Coagulation factors within normal limits. IMAGING: ULTRASOUND VENOUS DOPPLER LWR EXT BILA CLINICAL HISTORY: Lower extremity swelling COMPARISON STUDY: No previous studies for comparison. FINDINGS: Real-time and color flow Doppler imaging were performed. Flow was seen within the femoral, popliteal and calf veins with no intraluminal thrombus demonstrated. The saphenous vein is patent. IMPRESSION: No evidence of lower extremity DVT. EKG: Shows an atrial paced rhythm with a rate of 61 bpm, left axis deviation, no acute ST or T-wave changes, no ectopy, no significant change when compared to previous EKG from 01/19/2012 by my interpretation. MEDICATION RECONCILIATION: I attest that I have personally reviewed the patient 's current medication list. INITIAL VITAL SIGNS REVIEW: I reviewed the patient's initial vital signs and interpret them as follows: T: Afebrile; BP: Normotensive; HR: Within normal limits; RR: Within normal limits; Pulse Ox: Within normal limits on room air. Blood pressure screening: The patient was found to have normal blood pressure on screening and does not require follow-up for repeat blood pressure check. SUMMARY: Patient was evaluated at bedside, history and physical exam performed. Patient is alert and oriented, in no acute distress, resting calmly in the stretcher. Lungs are clear, no respiratory distress, labored breathing, tachypnea, or hypoxia. Calves are soft and nontender with no evidence of swelling. Orders were placed at bedside for labs, bilateral duplex to evaluate for DVT. Patient discussed with Dr. Luciano, who agrees with my assessment and plan. Labs and imaging reviewed as above, no evidence for DVT. I spoke on the phone with Dr. Prabhakar, oncology, regarding the patient's PE and plan for anticoagulation. He recommended switching the patient to Coumadin and bridging her with Lovenox 1.5 mg/kg daily and to have her follow-up with Dr. Rivas for continued management. Patient was given her first dose of Lovenox and Coumadin in the ED, and prescriptions for these medications were sent to the pharmacy. Given that the patient has been hemodynamically stable and asymptomatic, I feel that she is safe for discharge home. Patient reassessed multiple times throughout ED stay, she has remained stable and without complaint. Patient was updated on all results and plan for discharge, she was encouraged to follow closely with her PCP. Rx for repeat PT/INR was provided to the patient she was encouraged to have this done on Monday. apartment assistant manager was involved to help assist with arranging a follow-up appointment with Dr. Rivas next week. The patient and her have performed subcutaneous injections frequently in the past, they were comfortable doing the Lovenox shots at home. Patient was also given strict return precautions should her symptoms worsen, she verbalized understanding. Patient was discharged home in stable condition and ambulatory. Problem List Medical Problems: (1) Diabetes Status: Chronic (2) Heart disease Status: Chronic (3) High blood pressure Status: Chronic (4) Ovarian cancer Status: Chronic Current/Historical Medications Scheduled Amlodipine (Norvasc), 10 MG PO DAILY Aspirin (Aspirin Ec), 81 MG PO DAILY Atorvastatin (Lipitor), 20 MG PO DAILY Carvedilol (Coreg), 12.5 MG PO BIDM Dulaglutide (Trulicity), 1 PEN SQ WK Enoxaparin (Lovenox), 90 MG SQ DAILY Glimepiride (Glimepiride), 2-3 MG PO DAILY Rivaroxaban (Xarelto), 20 MG PO DAILY Valsartan/Hctz (Diovan Hct 320MG/25MG), 1 TAB PO DAILY Warfarin Sodium (Coumadin), 5 MG PO DAILY Zolpidem Tartrate (Ambien), 5-10 MG PO HS Scheduled PRN Morphine Sulfate (Morphine Sulfate ER), 15 MG PO BID PRN for Pain Oxycodone HCl (Oxycodone HCl), 5-10 MG PO Q4 PRN for Pain Allergies Coded Allergies: Sulfa Drugs (Verified Allergy, Mild, ITCHING, 06/22/18) ANDREW Inhibitors (Verified Allergy, Unknown, UNKNOWN, 06/22/18) CI Pigment Blue 63 (Verified Allergy, Unknown, UNKNOWN, 06/22/18) Citalopram (Verified Allergy, Unknown, UNKNOWN, 06/22/18) Duloxetine (Verified Allergy, Unknown, UNKNOWN, 06/22/18) Felodipine (Verified Allergy, Unknown, UNKNOWN, 06/22/18) Fluoxetine (Verified Allergy, Unknown, UNKNOWN, 06/22/18) POLLEN (Verified Allergy, Unknown, STUFFY NOSE CONGESTION, 06/22/18) Paroxetine (Verified Allergy, Unknown, UNKNOWN, 06/22/18) Pregabalin (Verified Allergy, Unknown, UNKNOWN, 06/22/18) Sertraline (Verified Allergy, Unknown, UNKNOWN, 06/22/18) Vital Signs Date Time Temp Pulse Resp B/P (MAP) Pulse Ox O2 Delivery O2 Flow Rate FiO2 06/22/18 19:50 67 18 155/75 99 06/22/18 18:33 67 18 197/94 97 Room Air 06/22/18 18:31 67 06/22/18 16:25 94 Room Air 06/22/18 16:25 60 16 157/73 96 Room Air 06/22/18 14:59 36.5 62 18 123/73 96 Room Air Laboratory Results 06/22/18 16:40 Red Blood Count 3.46, Mean Corpuscular Volume 89.6, Mean Corpuscular Hemoglobin 29.5, Mean Corpuscular Hemoglobin Concent 32.9, Mean Platelet Volume 9.8, Neutrophils (%) (Auto) 63.2, Lymphocytes (%) (Auto) 30.1, Monocytes (%) (Auto) 5.8, Eosinophils (%) (Auto) 0.7, Basophils (%) (Auto) 0.0, Neutrophils # (Auto) 3.70, Lymphocytes # (Auto) 1.76, Monocytes # (Auto) 0.34, Eosinophils # (Auto) 0.04, Basophils # (Auto) 0.00 06/22/18 16:40 Test 06/22/18 16:40 White Blood Count 5.85 K/uL (4.8-10.8) Red Blood Count 3.46 M/uL (4.2-5.4) Hemoglobin 10.2 g/dL (12.0-16.0) Hematocrit 31.0 % (37-47) Mean Corpuscular Volume 89.6 fL (80-100) Mean Corpuscular Hemoglobin 29.5 pg (25-34) Mean Corpuscular Hemoglobin Concent 32.9 g/dl (32-36) Platelet Count 131 K/uL (130-400) Mean Platelet Volume 9.8 fL (7.4-10.4) Neutrophils (%) (Auto) 63.2 % Lymphocytes (%) (Auto) 30.1 % Monocytes (%) (Auto) 5.8 % Eosinophils (%) (Auto) 0.7 % Basophils (%) (Auto) 0.0 % Neutrophils # (Auto) 3.70 K/uL (1.4-6.5) Lymphocytes # (Auto) 1.76 K/uL (1.2-3.4) Monocytes # (Auto) 0.34 K/uL (0.11-0.59) Eosinophils # (Auto) 0.04 K/uL (0-0.5) Basophils # (Auto) 0.00 K/uL (0-0.2) RDW Standard Deviation 52.8 fL (36.4-46.3) RDW Coefficient of Variation 16.2 % (11.5-14.5) Immature Granulocyte % (Auto) 0.2 % Immature Granulocyte # (Auto) 0.01 K/uL (0.00-0.02) Prothrombin Time 12.2 SECONDS (9.0-12.0) Prothromb Time International Ratio 1.2 (0.9-1.1) Activated Partial Thromboplast Time 25.3 SECONDS (21.0-31.0) Partial Thromboplastin Ratio 1.0 Anion Gap 8.0 mmol/L (3-11) Est Creatinine Clear Calc Drug Dose 71.0 ml/min Estimated GFR () 101.6 Estimated GFR (Non- 87.6 BUN/Creatinine Ratio 26.8 (10-20) Calcium Level 9.1 mg/dl (8.5-10.1) Total Bilirubin 0.4 mg/dl (0.2-1) Aspartate Amino Transf (AST/SGOT) 30 U/L (15-37) Alanine Aminotransferase (ALT/SGPT) 26 U/L (12-78) Alkaline Phosphatase 93 U/L (45-117) Total Protein 8.3 gm/dl (6.4-8.2) Albumin 3.1 gm/dl (3.4-5.0) Globulin 5.2 gm/dl (2.5-4.0) Albumin/Globulin Ratio 0.6 (0.9-2) Medications Administered Medications (Trade) Dose Ordered Sig/Gracie Route Start Time Stop Time Status Last Admin Dose Admin Warfarin Sodium (Coumadin Tab) 5 mg NOW ONCE PO 06/22/18 17:30 06/22/18 17:31 DC 06/22/18 18:32 5 MG Enoxaparin Sodium (Lovenox Inj) 90 mg TODAY@1745 ONCE SQ 06/22/18 17:45 06/22/18 17:46 DC 06/22/18 18:33 90 MG Heparin Sodium (Porcine) (Heparin 100 Unit/ml 5ml Flush) 5 ml STK-MED ONCE .ROUTE 06/22/18 19:46 06/22/18 19:47 DC 06/22/18 19:46 5 ML Departure Information Impression Primary Impression: Pulmonary embolism on left Dispostion Home / Self-Care Condition GOOD Prescriptions Warfarin Sodium (COUMADIN) 5 Mg Tab 5 MG PO DAILY for 30 Days, #30 TAB Prov: Isis Aguero CRNP 06/22/18 Enoxaparin (Lovenox) 80 Mg/0.8 Ml Inj 90 MG SQ DAILY for 7 Days, #7 SYR Prov: Isis Aguero CRNP 06/22/18 Referrals Dereje Campuzano M.D. (PCP) Loren Rivas M.D., PHD Davis Lozano MD Patient Instructions Coumadin, Embolism Pulmonary, Enoxaparin injection, [facility] Additional Instructions You have been evaluated and treated in the emergency department today for your left pulmonary embolism (blood clots in the lungs). You are being started on new medication to treat for blood clots. STOP taking the Xarelto as of today. You have been prescribed Lovenox injections to be taken once a day for the next 7 days and Coumadin 5 mg tablet to be taken once a day, which you will continue daily to treat your blood clot. You were given your first dose of these medications today in the emergency department. You are going to be scheduled to follow-up with Dr. Rivas, who will help to manage your blood thinner medication. You will be contacted to set up an appointment early next week. You have been provided with a prescription for blood work to have your PT/INR level checked on Monday. Please return to the emergency department for any chest pain, worsening shortness of breath or inability to catch your breath, coughing up blood, severe dizziness or passing out, development of fevers/chills, blood in the stool or urine, any bleeding that will not stop, or any other concerns.
[2018-06-22 16:25] VITALS: O2SAT 94
[2018-06-22 16:52] LABS: EOS % 0.7 %; EOS ABS # 0.04 K/uL (0-0.5); HEMOGLOBIN 10.2 g/dL (12.0-16.0); IG# 0.01 K/uL (0.00-0.02); LYMPH % 30.1 %; LYMPH ABS # 1.76 K/uL (1.2-3.4); MEAN CELL VOLUME 89.6 fL (80-100); MEAN CORPUSCULAR HEMOGLOBIN 29.5 pg (25-34); MEAN CORPUSCULAR HGB CONC 32.9 g/dl (32-36); MEAN PLATELET VOLUME 9.8 fL (7.4-10.4); MONO % 5.8 %; MONO ABS # 0.34 K/uL (0.11-0.59); NEUT % 63.2 %; PLATELET COUNT 131 K/uL (130-400); RED CELL DISTRIBUTION WIDTH CV 16.2 % (11.5-14.5); RED CELL DISTRIBUTION WIDTH SD 52.8 fL (36.4-46.3); WHITE BLOOD COUNT 5.85 K/uL (4.8-10.8)
[2018-06-22 17:00] LABS: INR 1.2 (0.9-1.1); PTT PATIENT 25.3 SECONDS (21.0-31.0)
[2018-06-22 17:13] LABS: ALBUMIN 3.1 gm/dl (3.4-5.0); CALCIUM 9.1 mg/dl (8.5-10.1); CREATININE 0.66 mg/dl (0.60-1.20); POTASSIUM 3.3 mmol/L (3.5-5.1); TOTAL PROTEIN 8.3 gm/dl (6.4-8.2)
[2018-06-22] MEDS ORDERED: ENOXAPARIN 1.5 MG/KG SQ STA (17:26)
[2018-06-22] MEDS ORDERED: WARFARIN SOD 5 MG TAB PO ONE (17:30)
[2018-06-22] MEDS ORDERED: ENOXAPARIN 100 MG/1ML SYR SQ ONE (17:45)
--- NOTE | 2018-06-22 17:53 | DIAGNOSTIC IMAGING REPORT ---
ULTRASOUND VENOUS DOPPLER LWR EXT BILA CLINICAL HISTORY: Lower extremity swelling COMPARISON STUDY: No previous studies for comparison. FINDINGS: Real-time and color flow Doppler imaging were performed. Flow was seen within the femoral, popliteal and calf veins with no intraluminal thrombus demonstrated. The saphenous vein is patent. IMPRESSION: No evidence of lower extremity DVT. Electronically signed by: Milan Gillette M.D. 06/22/2018 5:52 PM Dictated Date/Time: 06/22/2018 5:51 PM
--- NOTE | 2018-06-22 19:16 | EMERGENCY ROOM VISIT NOTE ---
ED Visit Note First contact with patient: 15:48 Patient seen and examined at bedside after discussion with SKYLAR Lopez. Patient aware of all results, aware of discussion with heme/onc. Patient denies any chest pain, trouble breathing, dizziness. Patient has been hemodynamically stable throughout. Other labs and imaging reassuring. Lower extremities negative for DVT. Discussed with patient symptoms to watch and return for, she verbalized understanding was agreeable with plan. Patient anxious to be discharged.
[2018-06-22] MEDS ORDERED: ENOX80IN SQ (19:24)
[2018-06-22] MEDS ORDERED: WARF5TAB90 PO (19:24)
[2018-06-22 19:50] VITALS: BP 155/75; PULSE 67; O2SAT 99
== END 2018-06-22 19:45 | disposition home or self-care (01) ==
LOC: C.EDB 14:43 → C.EDA 19:45
DX: I26.99 Other pulmonary embolism without acute cor pulmonale (principal); E11.9 Type 2 diabetes mellitus without complications; I51.9 Heart disease, unspecified; I10 Essential (primary) hypertension; D49.59 Neoplasm of unspecified behavior of other genitourinary organ; Z79.82 Long term (current) use of aspirin; Z79.01 Long term (current) use of anticoagulants; Z51.81 Encounter for therapeutic drug level monitoring; Z79.899 Other long term (current) drug therapy; Z88.2 Allergy status to sulfonamides; Z88.8 Allergy status to other drugs, medicaments and biological substances

== ENCOUNTER → 2018-06-22 | Outpatient (CLI) | payer OTHER ==
--- NOTE | 2018-06-20 12:01 | Discharge Instructions ---
Discharge Instructions Procedure Procedure Date: Jun 20, 2018. Reason for visit: Ovarian Ca. Discharge Discharge Date: Jun 20, 2018. Discharge Diagnosis: SAME Instructions Activity Recommendations: No limitations Recommended Home Diet: Resume Previous Diet Provider Instructions: ACTIVITY RECOMMENDATIONS: * Rest today. * Resume regular activity in one day. MEDICATIONS: * May take Tylenol or Ibuprofen as needed for pain. DIET: * Resume previous diet. SPECIAL CARE INSTRUCTIONS: Call your doctor if: * Temperature above 101 degrees F. * Pain not relieved by pain medicine ordered. * Increased drainage or redness from incision. * Notify your doctor with any questions or concerns. Call your doctor or go to the nearest Emergency Department if you experience: * Increased chest pain or shortness of breath. FOLLOW UP VISIT: Follow-up with Referring Physician as scheduled. Allergies Coded Allergies: Sulfa Drugs (Verified Allergy, Mild, ITCHING, 06/20/18) ANDREW Inhibitors (Verified Allergy, Unknown, UNKNOWN, 06/20/18) CI Pigment Blue 63 (Verified Allergy, Unknown, UNKNOWN, 06/20/18) Citalopram (Verified Allergy, Unknown, UNKNOWN, 06/20/18) Duloxetine (Verified Allergy, Unknown, UNKNOWN, 06/20/18) Felodipine (Verified Allergy, Unknown, UNKNOWN, 06/20/18) Fluoxetine (Verified Allergy, Unknown, UNKNOWN, 06/20/18) POLLEN (Verified Allergy, Unknown, STUFFY NOSE CONGESTION, 06/20/18) Paroxetine (Verified Allergy, Unknown, UNKNOWN, 06/20/18) Pregabalin (Verified Allergy, Unknown, UNKNOWN, 06/20/18) Sertraline (Verified Allergy, Unknown, UNKNOWN, 06/20/18) Sinan Diaz Recommendations: Call your doctor if: * Temperature above 101 degrees * Pain not relieved by pain medicine ordered * There is increased drainage or redness from any incision * You have any unanswered questions or concerns. Your Doctors Instructions noted above were prepared by provider Heath Lomeli. Patient Signature Section: Patient Instructions Signature Page eMlissa Horne Patient (or Guardian) Signature/Date: I have read and understand the instructions given to me by my caregivers. Caregiver/RN/Doctor Signature/Date: The above-named patient and/or guardian has received patient instructions on this date. + Original Patient Signature Page (only) stays with chart. Please make copy for patient.
[~2018-06-22] MED LIST changes: +CLON0.5T9 PO; +OPTIRAY 320 IV PRN
--- NOTE | 2018-06-22 13:23 | DIAGNOSTIC IMAGING REPORT ---
CT SCAN OF THE CHEST WITH IV CONTRAST CLINICAL HISTORY: Ovarian cancer. COMPARISON STUDY: Chest CT dated 06/26/2007. TECHNIQUE: Following the IV administration of 93 cc of Optiray 320, CT scan of the thorax was performed from the thoracic inlet to the upper abdomen. Images are reviewed in the axial, sagittal, and coronal planes. IV contrast was administered without complication. A dose lowering technique was utilized adhering to the principles of ALARA. CT DOSE: 553.90 mGycm FINDINGS: Thyroid: Imaged portions of the thyroid gland are normal in size and attenuation. Thoracic aorta: There is atherosclerotic calcification of the thoracic aorta, which is normal in caliber and demonstrates standard 3-vessel arch anatomy. No dissection is seen. A right internal jugular central venous infusion port is in place. Pulmonary vasculature: The pulmonary trunk is dilated, measuring 3.9 cm in diameter. This suggests pulmonary artery hypertension. There are pulmonary emboli identified within segmental branches of the left upper lobe pulmonary artery, best seen on image #104. Heart: A 2-lead cardiac pacemaker is present in the left chest wall. The heart is enlarged and without pericardial effusion. The coronary arteries are densely calcified. Lungs and pleural spaces: There is no airspace consolidation or pleural effusion. No concerning pulmonary lesion is seen. Minimal dependent atelectasis is observed. A punctate calcified granuloma seen at the left apex. The trachea and central airways are clear. Mediastinum: There is no mediastinal lymphadenopathy. Alexia: Clear. Axillae: Surgical clips are noted in the right axilla. There is no axillary lymphadenopathy. Upper abdomen: A tiny hiatal hernia is noted. There is upper abdominal ascites. The liver appears steatotic. See report of abdominal CT performed concurrently for detailed intra-abdominal findings. Skeletal structures: The skeletal structures are osteopenic. No lytic or blastic bony lesions are seen. Degenerative change and hyperkyphosis are noted in the thoracic spine. Soft tissues: There is evidence of bilateral mastectomy. Breast implants have been removed as compared to 2006. There is a 1.9 x 1.0 cm ovoid soft tissue lesion in the left paravertebral region seen at the level of T6 on image #91. IMPRESSION: 1. Segmental pulmonary emboli are identified within branches of the left upper lobe pulmonary artery. 2. There is no evidence of intrathoracic metastatic disease. 3. There is no airspace consolidation or pleural effusion. 4. Cardiomegaly and cardiac pacemaker. 5. There is evidence of pulmonary artery hypertension. 6. Upper abdominal ascites is noted. 7. There is a 1.8 cm ovoid left paravertebral soft tissue lesion seen at the level of T6. 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 This is unlikely to represent metastatic ovarian cancer. 8. Additional findings as above. Electronically signed by: Ciro Lo M.D. 06/22/2018 1:22 PM Dictated Date/Time: 06/22/2018 1:11 PM
--- NOTE | 2018-06-22 13:27 | DIAGNOSTIC IMAGING REPORT ---
ABD/PELVIS IV AND ORAL CONT CLINICAL HISTORY: 73 years-old Female presenting with OVARIAN CA, WORSENING ABD PAIN , RISING CA125. TECHNIQUE: Multidetector CT of the abdomen and pelvis was performed after the administration of oral and intravenous contrast. IV contrast: 93 mL of Optiray 320. A dose lowering technique was used consistent with the principles of ALARA (as low as reasonably achievable). COMPARISON: 03/08/2018. CT DOSE (mGy.cm): The estimated cumulative dose is 553.90. FINDINGS: Piano Regulator Inspector topogram: Left subclavian pacer with leads to the right atrium and right ventricular apex. Lungs appear hyperinflated. Right subclavian Mediport terminates in the lower SVC. Right axillary surgical clips. Lung bases: Lungs and pleural spaces clear. Normal heart size. Coronary artery, aortic valve, and mitral annular calcification. No pericardial or pleural effusion. Liver: Mildly macronodular contour. Unchanged subcentimeter well-defined hypodense lesion at the hepatic dome compatible with hepatic cyst or hamartoma. No new liver lesion. Patent hepatic vasculature. Biliary: No intrahepatic or extrahepatic biliary ductal dilatation. Gallbladder decompressed. Pancreas: Annular pancreas. Extensive vascular calcification surrounding the head of the pancreas. Mild parenchymal atrophy of the pancreas. Mild prominence of the pancreatic duct is unchanged. Spleen: Normal. Adrenal glands: Normal. Kidneys and ureters: Several small hypodense lesions in both kidneys, some too small to characterize but likely cysts. No hydronephrosis. No nephrolithiasis. Ureters nondistended. Bladder: Incompletely evaluated secondary to underdistention. Pelvic organs: Calcified foci in the uterus likely degenerated fibroids. Ovaries grossly normal. Bowel: Normal appendix. No bowel obstruction. Hypodense dependent material in the stomach likely represents ingested material. No bowel wall thickening. Peritoneal cavity: Interval decrease in volume of abdominopelvic ascites, which is now moderate. Redemonstration of peritoneal thickening. Hyperenhancing or hyperdense omental take again noted in the left anterior abdomen. This has decreased in size from prior, now measuring approximately 7.4 x 1.6 cm in maximal axial dimension, previously 13.0 x 1.6 cm. No new sites of omental taking. The previously noted site of solid nodularity in the pelvis now appears more cystic (series 7 image 342). Lymph nodes: Enlarged aortocaval lymph nodes as on prior exam. An index node measures 10 mm in the short axis, previously 11 mm (series 7 image 156). The additional lymph node immediately anterior to the aorta now measures 8 mm in the short axis, previously 11 mm (series 7 image 146). No new sites of lymphadenopathy. Additional lymph nodes noted in the gastrohepatic region are stable to slightly decreased from prior as are portacaval lymph nodes. Vasculature: Atherosclerosis of the normal caliber abdominal aorta. IVC patent. Abdominal wall: Skin thickening of the anterior abdominal wall along the pannus. Musculoskeletal: Degenerative changes of the spine. No destructive osseous lesion. IMPRESSION: 1. Decreased volume malignant ascites, which is now moderate in volume. Decreased size of omental cake and evolution of peritoneal nodularity. Stable to slight interval decreased size of lymphadenopathy. These findings may suggest treatment response. No new sites of disease. Electronically signed by: Edmund Nagy M.D. 06/22/2018 1:25 PM Dictated Date/Time: 06/22/2018 1:08 PM
== END | disposition home or self-care (01) ==
LOC: C.CTS 12:43
PROVIDERS: ATTEND Internal Medicine Hematology & Oncology
DX: C56.9 Malignant neoplasm of unspecified ovary (principal); R18.0 Malignant ascites; I26.99 Other pulmonary embolism without acute cor pulmonale; I51.7 Cardiomegaly

== ENCOUNTER 2019-11-07 13:09 | Inpatient (IN) ==
[2019-11-07] MEDS ORDERED: SODIUM CHLORIDE 0.9% 500 ML IV ONE ×2 (14:30→16:22)
[2019-11-07 14:32] LABS: Basophils # (auto) 0.01 K/uL (0-0.2); Basophils % (auto) 0.2 %; Eosinophils # (auto) 0.02 K/uL (0-0.5); Eosinophils % (auto) 0.3 %; Hematocrit (blood only) 39.9 % (37-47); Hemoglobin 14.1 g/dL (12.0-16.0); Immature Granulocytes # (auto) 0.01 K/uL (0.00-0.02); Immature Granulocytes % (auto) 0.2 %; Lymphocytes % (auto) 18.2 %; Mean Corpuscular Hemoglobin 34.4 pg (25-34); Mean Corpuscular Hgb Conc 35.3 g/dL (32-36); Mean Corpuscular Volume 97.3 fL (80-100); Mean Platelet Volume 10.1 fL (7.4-10.4); Monocytes # (auto) 0.49 K/uL (0.11-0.59); Monocytes % (auto) 7.4 %; Neutrophils # (auto) 4.85 K/uL (1.4-6.5); Neutrophils % (auto) 73.7 %; Platelet Count 150 K/uL (130-400); RDW Coefficient of Variation 13.1 % (11.5-14.5); RDW Standard Deviation 46.4 fL (36.4-46.3); White Blood Count 6.58 K/uL (4.8-10.8)
[2019-11-07 14:40] LABS: iSTAT Hemoglobin 12.9 g/dl (12.0-16.0); iSTAT Ionized Calcium 1.05 mmol/l (1.12-1.32); iSTAT Potassium 2.9 mEq/L (3.3-5.0)
--- NOTE | 2019-11-07 14:45 | XRay Report ---
XR chest 1V portable CLINICAL HISTORY: Pain, radiating to the abdomen COMPARISON STUDY: 04/12/2018 FINDINGS: The cardiac and mediastinal contours are normal. There is no evidence of focal pulmonary co nsolidation. There is no evidence of failure. No pleural effusions are visualized.[There is a left dyer bclavian dual-chamber central venous pacemaker. There is a right-sided A-Port catheter. Surgical clip s project over both axillary regions. There is no free intraperitoneal air. IMPRESSION: No active disease in the chest. ACT 112: Negative or not required by law. Electronically signed by: Milan Gillette M.D. 11/07/2019 2:44 PM
[2019-11-07 14:50] LABS: Albumin Level 1.3 gm/dl (3.4-5.0); Aspartate Aminotransferase 30 U/L (15-37); BUN Creatinine Ratio 18.1 (10-20); Blood Urea Nitrogen 36 mg/dl (7-18); Calcium 8.4 mg/dl (8.5-10.1); Carbon Dioxide 31 mmol/L (21-32); Chloride 99 mmol/L (98-107); Creatinine Clr Calc Pharmacy 24.2 ml/min; Est GFR (African American) 28.1; Est GFR (Non-African American) 24.3; Glucose 197 mg/dl (70-99); Potassium 2.9 mmol/L (3.5-5.1); Sodium 136 mmol/L (136-145)
[2019-11-07 14:55] LABS: Alanine Aminotransferase 14 U/L (12-78); Albumin Globulin Ratio 0.3 (0.9-2); Alkaline Phosphatase 111 U/L (45-117); Bilirubin,Total 0.4 mg/dl (0.2-1); Globulin 4.7 gm/dl (2.5-4.0); Troponin I < 0.015 ng/ml (0-0.045)
--- NOTE | 2019-11-07 16:15 | CT Scan Report ---
CT OF THE ABDOMEN AND PELVIS WITHOUT CONTRAST CLINICAL HISTORY: Abdominal pain. Vomiting. Ovarian cancer. Elevated creatinine. COMPARISON STUDY: CT of the abdomen and pelvis September 10, 2019. TECHNIQUE: Axial images of the abdomen and pelvis were obtained without IV contrast. Images were revi ewed in the axial, sagittal, and coronal planes. Automated exposure control was utilized for the ileana dy. A dose lowering technique was utilized adhering to the principles of ALARA. FINDINGS: Lung bases are unremarkable. No pneumatosis, free air or portal venous gas is present. Eval uation of the abdomen and pelvis is suboptimal on this unenhanced examination. The liver, spleen, adr enal glands and pancreas are unremarkable. There is no biliary or pancreatic ductal dilatation. The g allbladder is mildly distended. There is no peripancreatic infiltration. There is no evidence for a b owel structure. The appendix is normal. Numerous partially calcified enlarged retroperitoneal and gas trohepatic ligament lymph nodes are similar to CT of September 10, 2019. These include a peripancreati c node measures 3 x 2.2 cm. Numerous peritoneal implants are again noted. These are partially calcifi ed. The largest is within the left mid abdomen, measuring 3 cm in short axis diameter. This has sligh tly decreased since CT of September 10, 2019 and measured 3.2 cm. No new implants are noted. There is no ascites. There is no hydronephrosis. Several left renal calculi measure up to 3 mm. There are no u reteral calculi and there is no hydronephrosis. There are no suspicious osseous lesions. IMPRESSION: 1. No bowel obstruction. Normal appendix. 2. Mild gallbladder distention without adjacent infiltration. If right upper quadrant pain, an ultras ound is recommended however these findings do not strongly suggest acute cholecystitis. 3. Slight decrease in size of the largest peritoneal implant since exam of September 10, 2019. No sign ificant change in pathologic abdominal lymphadenopathy. 4. No hydronephrosis. Several small left renal calculi. No ureteral calculi. ACT 112: Negative or not required by law. Electronically signed by: Renaldo Eagle M.D. 11/07/2019 4:13 PM
[2019-11-07] MEDS ORDERED: ONDANSETRON INJ 2 MG/ML 2 ML VIAL IV STA (16:16)
[2019-11-07] MEDS ORDERED: POTASSIUM CHLORIDE / WTR 10 MEQ/100 ML PLCT IV ONE (16:22)
[2019-11-07 16:28] LABS: Lipase 45 U/L (73-393)
[2019-11-07] MEDS ORDERED: METHADONE HCL 5 MG TAB PO STA (16:47)
[2019-11-07] MEDS ORDERED: OXYCODONE HCL IR 5 MG TAB (IMMEDIATE RELEASE) PO STA (16:47)
--- NOTE | 2019-11-07 17:44 | Emergency Department Note ---
Entered by Rama Dias acting as a scribe for Norm Rogel M.D. History of Present Illness General Chief complaint: Pain (Generalized) Stated complaint: UNCONTROLLED PAIN HAS OVARIAN CA Time Seen by Provider: 11/07/19 13:59 Source: patient and family History of Present Illness Onset (ago): day(s) 4 Location: abdomen Severity: similar to prior episodes Pain Consistency: + other (worsening) Maximum Pain Intensity: 10 Quality: + other (abdominal pain) Associated symptoms: + nausea/vomiting and + other (abdominal pain); no chest pain and no shortness of breath Treatments prior to arrival: other (Oxycodone, Methadone, etc.) The patient is a 74 year old female presenting to the Emergency Department complaining of worsening abdominal pain starting 4 days ago. The patients family reports that the patient has increased lower abdominal pain. They state that the patient has worsening lower abdominal pain. They explain has been nauseous and vomiting for the past 4 days. They note that the patient had an episode of yellow diarrhea today but that the patient hasnt been having normal bowel movements for the past few days. They add that the patient didnt eat anything yet today. The patients family reports that the patient vomited [employer] today. They state that the patient has experienced these symptoms before as she has ovarian cancer and often complains of abdominal pain. They explain that the patient regularly takes Oxycodone, Methadone and other medications for her pain. They note that the patient has an appointment with a psychologist on 11/11/18. The patient denies chest pain and shortness of breath. Home Medications Home Medications Medication Instructions Recorded Confirmed Type amlodipine 10 mg PO DAILY 07/02/18 11/07/19 History carvedilol 12.5 mg PO BIDM 07/02/18 11/07/19 History oxycodone 5 - 10 mg PO Q4H PRN 07/02/18 11/07/19 History phytonadione (vitamin K1) 100 mcg 100 mcg PO MONWEDFRI tab 10/01/18 11/07/19 History tablet morphine 15 mg tablet,extended 60 mg PO TID tab 01/21/19 11/07/19 History release methadone 5 mg tablet 10 mg PO Q12H tab 02/18/19 11/07/19 History sertraline 25 mg tablet 62.5 mg PO DAILY tab 03/11/19 11/07/19 History glipizide 5 mg tablet 5 mg PO BID #180 tab 06/27/19 11/07/19 Rx ondansetron HCl 8 mg tablet 8 mg PO Q8H PRN tab 07/05/19 11/07/19 History prochlorperazine maleate 10 mg 10 mg PO Q6H PRN 07/05/19 11/07/19 History tablet atorvastatin 20 mg tablet 20 mg PO DAILY #90 tab 09/02/19 11/07/19 Rx clonazepam 0.5 mg tablet 0.5 mg PO HS PRN #90 tab 09/02/19 11/07/19 Rx valsartan 320 1 tab PO DAILY #90 tab 09/02/19 11/07/19 Rx mg-hydrochlorothiazide 25 mg tablet Trulicity 0.75 mg/0.5 mL 0.75 mg SUBCUT WK #2 ml NS 09/20/19 11/07/19 Rx subcutaneous pen injector cholecalciferol (vitamin D3) 2,000 2,000 units PO DAILY tab 10/09/19 11/07/19 History unit tablet docusate sodium 250 mg capsule 500 mg PO BID PRN cap 10/09/19 11/07/19 History flash glucose scanning reader #1 ea 10/10/19 10/10/19 History insulin glargine 100 unit/mL (3 80 units SQ UD PRN ml 10/10/19 11/07/19 History mL) subcutaneous pen polyethylene glycol 3350 17 17 gm PO DAILY PRN 10/10/19 11/07/19 History gram/dose oral powder warfarin 0 mg PO UD 11/07/19 11/07/19 History zolpidem 0 mg PO UD 11/07/19 11/07/19 History Allergies Allergy/AdvReac Type Severity Reaction Status Date / Time Sulfa (Sulfonamide Allergy Intermediate ITCHING Verified 11/07/19 14:13 Antibiotics) blue dye Allergy Unknown UNKNOWN Verified 11/07/19 14:13 citalopram Allergy Unknown UNKNOWN Verified 11/07/19 14:13 duloxetine Allergy Unknown UNKNOWN Verified 11/07/19 14:13 felodipine Allergy Unknown UNKNOWN Verified 11/07/19 14:13 fluoxetine Allergy Unknown UNKNOWN Verified 11/07/19 14:13 paroxetine Allergy Unknown UNKNOWN Verified 11/07/19 14:13 pollen extracts Allergy Unknown STUFFY Verified 11/07/19 14:13 NOSE CONGESTION pregabalin Allergy Unknown UNKNOWN Verified 11/07/19 14:13 sertraline Allergy Unknown UNKNOWN Verified 11/07/19 14:13 ANDREW Inhibitors AdvReac Unknown UNKNOWN Verified 11/07/19 14:13 Past Med/Surg History Medical History Diabetes type 2, uncontrolled Dyslipidemia Heart disease (Chronic) High blood pressure (Chronic) Ovarian cancer (Chronic) Social History Feels Safe at Home: Yes Smoking Status: Former smoker Review of Systems See HPI for pertinent positives & negatives. and A total of 10 systems reviewed and were otherwise negative Physical Exam Vital Signs Vital Signs - 24 hr 11/07/19 13:17 11/07/19 13:30 11/07/19 13:35 Temperature 36.8 C Temperature Source Oral Pulse Rate 63 67 62 Pulse Rate [Apical] Pulse Rate from SpO2 Sensor 63 62 Respiratory Rate 20 21 14 Respiratory Effort / Characteristics Non-Labored Spontaneous Respiratory Depth Normal Respiratory Pattern Blood Pressure 97/62 L 114/61 Blood Pressure [Right Arm] Blood Pressure Mean 73 74 Blood Pressure Mean [Right Arm] Pulse Oximetry 99 95 Oxygen Delivery Method Room Air Sepsis Recent Fever Within 48 Hours No Sepsis Action Taken by Nursing No Action Required 11/07/19 14:00 11/07/19 14:30 11/07/19 15:00 Temperature Temperature Source Pulse Rate 61 60 60 Pulse Rate [Apical] Pulse Rate from SpO2 Sensor 62 60 60 Respiratory Rate 21 18 17 Respiratory Effort / Characteristics Respiratory Depth Respiratory Pattern Blood Pressure Blood Pressure [Right Arm] Blood Pressure Mean Blood Pressure Mean [Right Arm] Pulse Oximetry 98 95 96 Oxygen Delivery Method Sepsis Recent Fever Within 48 Hours Sepsis Action Taken by Nursing 11/07/19 15:05 11/07/19 15:13 11/07/19 15:30 Temperature Temperature Source Pulse Rate 60 60 Pulse Rate [Apical] 60 Pulse Rate from SpO2 Sensor 60 60 Respiratory Rate 19 20 17 Respiratory Effort / Characteristics Non-Labored Spontaneous Respiratory Depth Normal Respiratory Pattern Regular Blood Pressure 101/57 L 129/62 Blood Pressure [Right Arm] 101/57 L Blood Pressure Mean 68 84 Blood Pressure Mean [Right Arm] 71 Pulse Oximetry 96 95 92 Oxygen Delivery Method Room Air Sepsis Recent Fever Within 48 Hours Sepsis Action Taken by Nursing 11/07/19 15:31 11/07/19 16:04 11/07/19 16:15 Temperature Temperature Source Pulse Rate 60 61 61 Pulse Rate [Apical] Pulse Rate from SpO2 Sensor 60 61 Respiratory Rate 14 13 13 Respiratory Effort / Characteristics Respiratory Depth Respiratory Pattern Blood Pressure 129/66 Blood Pressure [Right Arm] Blood Pressure Mean 104 Blood Pressure Mean [Right Arm] Pulse Oximetry 93 97 Oxygen Delivery Method Sepsis Recent Fever Within 48 Hours Sepsis Action Taken by Nursing 11/07/19 16:30 Temperature Temperature Source Pulse Rate 66 Pulse Rate [Apical] Pulse Rate from SpO2 Sensor 66 Respiratory Rate 22 Respiratory Effort / Characteristics Respiratory Depth Respiratory Pattern Blood Pressure Blood Pressure [Right Arm] Blood Pressure Mean Blood Pressure Mean [Right Arm] Pulse Oximetry 95 Oxygen Delivery Method Sepsis Recent Fever Within 48 Hours Sepsis Action Taken by Nursing GENERAL: Patient appears fatigued. Awake, alert, sitting on stretcher HENT: Normocephalic, atraumatic. EYES: Normal conjunctiva. Sclera non-icteric. NECK: Supple. No nuchal rigidity. RESPIRATORY: Clear to auscultation. No wheezes. Normal respiratory effort. CARDIAC: Normal rate. Normal rhythm. Extremities warm and well perfused. GI: Soft, non-distended. No tenderness to palpation. No rebound or guarding. RECTAL: Deferred. MUSCULOSKELETAL: Atraumatic. Chest examination reveals no tenderness. LOWER EXTREMITIES: Trace pedal edema. Calves are equal size bilaterally and non- tender. NEURO: Normal sensorium. No sensory or motor deficits noted. No facial droop. SKIN: Warm and dry. No jaundice noted. Course Course 1400: I discussed the patients case with Dr. Herrera PCP who provided background on the patients story. The patient had an appointment with her PCP earlier today. 1410: The patient was evaluated in room B2, and a complete history and physical examination were performed. 1622: I spoke to Dr. Herrera at this time who recommends to decrease the patients MS Contin. 1624: I updated the patient and her family at this time. 1632: I discussed the patient's case with Dr. Garcia - [facility] hospitalist. She will evaluate the patient for further management. Administered Medications Discontinued Medications Sodium Chloride (Nss) 500 mls @ 999 mls/hr IV .Q31M ONE Stop: 01/09/20 15:00 Last Infusion: 11/07/19 15:57 Dose: 0 mls/hr Documented by: [id number] Admin: 11/07/19 15:07 Dose: 999 mls/hr Documented by: [id number] Sodium Chloride (Nss) 500 mls @ 999 mls/hr IV .Q31M ONE Stop: 11/07/19 16:52 Last Admin: 11/07/19 16:36 Dose: 999 mls/hr Documented by: [id number] Potassium Chloride (K Noel / Wtr) 10 meq in 100 mls @ 100 mls/hr IV ONE ONE Stop: 11/07/19 17:21 Last Admin: 11/07/19 16:36 Dose: 100 mls/hr Documented by: [id number] Ondansetron HCl (Zofran) 4 mg IV NOW STA Stop: 11/07/19 16:17 Last Admin: 11/07/19 16:33 Dose: 4 mg Documented by: [id number] Oxycodone HCl (Roxicodone Immediate Rel) 5 mg PO NOW STA Stop: 11/07/19 16:48 Last Admin: 11/07/19 16:56 Dose: 5 mg Documented by: [id number] Medical Decision Making Differential Diagnosis Differential diagnoses includes but is not limited to gastritis, peptic ulcer disease, GERD, gallbladder disease, pancreatitis, small bowel obstruction, acute coronary syndrome, pericarditis, ischemic bowel, irritable bowel disease, irritable bowel syndrome, appendicitis, diverticulitis, malignancy, hernia, urinary tract infection, torsion, perforation, trauma, infectious. Medical Records Attestation: I reviewed the patient's medical records. Home Medications Current Medication List: was personally reviewed by me Laboratory Data Attestation: I reviewed the patient's lab results. Result diagrams: 11/07/19 14:20 11/07/19 14:20 Lab Results 11/07/19 11/07/19 11/07/19 Range/Units 14:20 14:20 14:20 WBC 6.58 (4.8-10.8) K/uL RBC 4.10 L (4.2-5.4) M/uL Hgb 14.1 (12.0-16.0) g/dL POC Hgb (12.0-16.0) g/dl Hct 39.9 (37-47) % POC Hct (37-47) % MCV 97.3 (80-100) fL MCH 34.4 H (25-34) pg MCHC 35.3 (32-36) g/dL RDW Std Deviation 46.4 H (36.4-46.3) fL RDW Coeff of Gera 13.1 (11.5-14.5) % Plt Count 150 (130-400) K/uL MPV 10.1 (7.4-10.4) fL Immature Gran % (Auto) 0.2 % Neut % (Auto) 73.7 % Lymph % (Auto) 18.2 % [place] % (Auto) 7.4 % Eos % (Auto) 0.3 % Baso % (Auto) 0.2 % Immature Gran # (Auto) 0.01 (0.00-0.02) K/uL Neut # (Auto) 4.85 (1.4-6.5) K/uL Lymph # (Auto) 1.20 (1.2-3.4) K/uL [place] # (Auto) 0.49 (0.11-0.59) K/uL Eos # (Auto) 0.02 (0-0.5) K/uL Baso # (Auto) 0.01 (0-0.2) K/uL POC Sodium (135-144) mEq/L Sodium 136 (136-145) mmol/L POC Potassium (3.3-5.0) mEq/L Potassium 2.9 L (3.5-5.1) mmol/L POC Chloride (101-112) mEq/L Chloride 99 (98-107) mmol/L Carbon Dioxide 31 (21-32) mmol/L POC Total CO2 (24-31) mEq/l Anion Gap 6.0 (3-11) POC Anion Gap (16-25) mmol/L POC BUN (7-18) mg/dl BUN 36 H (7-18) mg/dl Creatinine 1.98 H (0.6-1.2) mg/dl POC Creatinine (0.6-1.3) mg/dl Est Cr Clr Drug Dosing 24.2 ml/min Est GFR ( Amer) 28.1 Est GFR (Non-Af Amer) 24.3 BUN/Creatinine Ratio 18.1 (10-20) Glucose 197 H (70-99) mg/dl POC Glucose (other) (70-99) mg/dl Calcium 8.4 L (8.5-10.1) mg/dl POC Ioniz Calcium Khoa (1.12-1.32) mmol/l Total Bilirubin 0.4 (0.2-1) mg/dl AST 30 (15-37) U/L ALT 14 (12-78) U/L Alkaline Phosphatase 111 (45-117) U/L Troponin I < 0.015 Cancelled (0-0.045) ng/ml Total Protein 6.0 L (6.4-8.2) gm/dl Albumin 1.3 L (3.4-5.0) gm/dl Globulin 4.7 H (2.5-4.0) gm/dl Albumin/Globulin Ratio 0.3 L (0.9-2) Lipase 45 L Cancelled (73-393) U/L 11/07/19 Range/Units 14:22 WBC (4.8-10.8) K/uL RBC (4.2-5.4) M/uL Hgb (12.0-16.0) g/dL POC Hgb 12.9 (12.0-16.0) g/dl Hct (37-47) % POC Hct 38 (37-47) % MCV (80-100) fL MCH (25-34) pg MCHC (32-36) g/dL RDW Std Deviation (36.4-46.3) fL RDW Coeff of Gera (11.5-14.5) % Plt Count (130-400) K/uL MPV (7.4-10.4) fL Immature Gran % (Auto) % Neut % (Auto) % Lymph % (Auto) % [place] % (Auto) % Eos % (Auto) % Baso % (Auto) % Immature Gran # (Auto) (0.00-0.02) K/uL Neut # (Auto) (1.4-6.5) K/uL Lymph # (Auto) (1.2-3.4) K/uL [place] # (Auto) (0.11-0.59) K/uL Eos # (Auto) (0-0.5) K/uL Baso # (Auto) (0-0.2) K/uL POC Sodium 134 L (135-144) mEq/L Sodium (136-145) mmol/L POC Potassium 2.9 L (3.3-5.0) mEq/L Potassium (3.5-5.1) mmol/L POC Chloride 97 L (101-112) mEq/L Chloride (98-107) mmol/L Carbon Dioxide (21-32) mmol/L POC Total CO2 30 (24-31) mEq/l Anion Gap (3-11) POC Anion Gap 11.0 L (16-25) mmol/L POC BUN 33 H (7-18) mg/dl BUN (7-18) mg/dl Creatinine (0.6-1.2) mg/dl POC Creatinine 2.0 H (0.6-1.3) mg/dl Est Cr Clr Drug Dosing ml/min Est GFR ( Amer) Est GFR (Non-Af Amer) BUN/Creatinine Ratio (10-20) Glucose (70-99) mg/dl POC Glucose (other) 199 H (70-99) mg/dl Calcium (8.5-10.1) mg/dl POC Ioniz Calcium Khoa 1.05 L (1.12-1.32) mmol/l Total Bilirubin (0.2-1) mg/dl AST (15-37) U/L ALT (12-78) U/L Alkaline Phosphatase (45-117) U/L Troponin I (0-0.045) ng/ml Total Protein (6.4-8.2) gm/dl Albumin (3.4-5.0) gm/dl Globulin (2.5-4.0) gm/dl Albumin/Globulin Ratio (0.9-2) Lipase (73-393) U/L Imaging Data Radiologist's Impression: Radiology results as stated below per my review and the radiologist's interpretation: CT OF THE ABDOMEN AND PELVIS WITHOUT CONTRAST CLINICAL HISTORY: Abdominal pain. Vomiting. Ovarian cancer. Elevated creatinine. COMPARISON STUDY: CT of the abdomen and pelvis September 10, 2019. TECHNIQUE: Axial images of the abdomen and pelvis were obtained without IV contrast. Images were reviewed in the axial, sagittal, and coronal planes. Automated exposure control was utilized for the study. A dose lowering technique was utilized adhering to the principles of ALARA. FINDINGS: Lung bases are unremarkable. No pneumatosis, free air or portal venous gas is present. Evaluation of the abdomen and pelvis is suboptimal on this unenhanced examination. The liver, spleen, adrenal glands and pancreas are unremarkable. There is no biliary or pancreatic ductal dilatation. The gallbladder is mildly distended. There is no peripancreatic infiltration. There is no evidence for a bowel structure. The appendix is normal. Numerous partially calcified enlarged retroperitoneal and gastrohepatic ligament lymph nodes are similar to CT of September 10, 2019. These include a peripancreatic node measures 3 x 2.2 cm. Numerous peritoneal implants are again noted. These are partially calcified. The largest is within the left mid abdomen, measuring 3 cm in short axis diameter. This has slightly decreased since CT of September 10, 2019 and measured 3.2 cm. No new implants are noted. There is no ascites. There is no hydronephrosis. Several left renal calculi measure up to 3 mm. There are no ureteral calculi and there is no hydronephrosis. There are no suspicious osseous lesions. IMPRESSION: 1. No bowel obstruction. Normal appendix. 2. Mild gallbladder distention without adjacent infiltration. If right upper quadrant pain, an ultrasound is recommended however these findings do not strongly suggest acute cholecystitis. 3. Slight decrease in size of the largest peritoneal implant since exam of September 10, 2019. No significant change in pathologic abdominal lymphadenopathy. 4. No hydronephrosis. Several small left renal calculi. No ureteral calculi. ACT 112: Negative or not required by law. Electronically signed by: Renaldo Eagle M.D. 11/07/2019 4:13 PM XR chest 1V portable CLINICAL HISTORY: Pain, radiating to the abdomen COMPARISON STUDY: 04/12/2018 FINDINGS: The cardiac and mediastinal contours are normal. There is no evidence of focal pulmonary consolidation. There is no evidence of failure. No pleural effusions are visualized.[There is a left subclavian dual-chamber central venous pacemaker. There is a right-sided A-Port catheter. Surgical clips project over both axillary regions. There is no free intraperitoneal air. IMPRESSION: No active disease in the chest. ACT 112: Negative or not required by law. Electronically signed by: Milan Gillette M.D. 11/07/2019 2:44 PM ECG Data Attestation: I personally reviewed and interpreted this ECG as follows: Indication: + abdominal pain Rate (beats per minute): 60 Rhythm: + other (Atrially paced. ) ECG [place]: + Left axis deviation ECG ST segments: no ST elevation ECG Findings: no PVCs Comparison ECG Date: from () Change: no significant change Blood Pressure Blood Pressure Findings: Elevated blood pressure Blood Pressure Disposition: further management by hospitalist DAVE Narrative Patient is a 74-year-old female with a past medical history of diabetes, hypertension, ovarian cancer currently maintained on methadone, morphine, and oxycodone presenting today complaining of worsening abdominal pain with nausea. Vomited today when taking oral contrast for CT the abdomen pelvis. Patient's primary doctor presents here to provide additional history and evaluate the patient as well. Patient without fever. No significant trauma reported. Moving her bowels. Benign abdomen without tenderness on exam. Patient does not appear in acute distress on exam. Basic labs are completed without evidence of acute pancreatitis, or hepatitis. No significant new leukocytosis is noted al though she is finishing a dexamethasone dosage. Chest x-ray is unremarkable. EKG without acute findings. Troponin is negative and I doubt ACS/PE/ dissection. Patient does have evidence of new hypokalemia and a new acute kidney injury with a creatinine of approximately 2. CT scan of the abdomen pelvis shows stable to slightly improved intra-abdominal pathology at this time limited to non contrast scan however. No signs of appendicitis; mild gallbladder distension noted but again non tender exam and doubt cholecystitis. Given the new hypokalemia and acute kidney injury likely secondary to poor oral intake feel at this time observation overnight for repletion rehydration is indicated. Discussed with Dr. Herrera who recommended spacing her MS Contin from 3 times daily to twice daily at this time and continuing other medications. Updated the patient's family and her. Received him Zofran and fluids in the emergency department. Hospitalist contacted for further evaluation. Impression & Plan Dehydration, Acute kidney injury, Acute hypokalemia, Epigastric pain Discharge Plan Visit Data Chief Complaint: Pain (Generalized) Stated Complaint: UNCONTROLLED PAIN HAS OVARIAN CA ED Provider: Norm Rogel Discharge Problem: Dehydration, Acute kidney injury, Acute hypokalemia, Epigastric pain Patient Disposition: Being Evaluated by Hospitalist Forms Stand Alone Forms: [employer] Prescriptions Prescriptions: No Action phytonadione (vitamin K1) 100 mcg tablet 100 mcg PO MONWEDFRI RF: 0 sertraline [Zoloft] 25 mg tablet 62.5 mg PO DAILY RF: 0 ondansetron HCl [Zofran] 8 mg tablet 8 mg PO Q8H PRN (Reason: nausea and vomiting) RF: 0 prochlorperazine maleate [Compazine] 10 mg tablet 10 mg PO Q6H PRN (Reason: nausea and vomiting) RF: 0 carvedilol 12.5 mg Tablet 12.5 mg PO BIDM RF: 0 amlodipine 10 mg Tablet 10 mg PO DAILY RF: 0 oxycodone 5 mg Tablet 5 - 10 mg PO Q4H PRN (Reason: Pain) RF: 0 morphine 15 mg tablet extended release 60 mg PO TID RF: 0 polyethylene glycol 3350 [Miralax] 17 gram/dose powder 17 gm PO DAILY PRN (Reason: Constipation) RF: 0 methadone 5 mg tablet 10 mg PO Q12H RF: 0 glipizide 5 mg tablet 5 mg PO BID Qty: 180 RF: 3 atorvastatin 20 mg tablet 20 mg PO DAILY Qty: 90 RF: 1 clonazepam 0.5 mg tablet 0.5 mg PO HS PRN (Reason: Sleep) Qty: 90 RF: 0 valsartan-hydrochlorothiazide [Diovan HCT] 320-25 mg tablet 1 tab PO DAILY Qty: 90 RF: 1 Trulicity 0.75 mg/0.5 mL pen injector 0.75 mg subcut WK Qty: 2 RF: 1 cholecalciferol (vitamin D3) 2,000 unit tablet 2,000 units PO DAILY RF: 0 docusate sodium 250 mg capsule 500 mg PO BID PRN (Reason: Constipation) RF: 0 (DME) [employer]o 14 Day [place] misc See Rx Instructions .ROUTE .MEDSUPPLY Qty: 1 RF: 0 Lantus Solostar U-100 Insulin 100 unit/mL (3 mL) insulin pen 80 units SQ UD PRN (Reason: Hyperglycemia) RF: 0 warfarin 5 mg tablet 0 mg PO UD RF: 0 zolpidem 10 mg tablet 0 mg PO UD RF: 0 Referrals Referrals: Alex Campuzano MD [Primary Care Provider] - The scribe's documentation has been prepared under my direction and personally reviewed by me in its entirety. I confirm that the note above accurately reflects all work, treatment, procedures, and medical decision making performed by me.
--- NOTE | 2019-11-07 17:47 | History & Physical Report ---
Date of Service November 07, 2019 Assessment & Plan (1) Nausea & vomiting: Admit to [facility] Vital signs every 4 hours Continue pain management with tapering down MS Contin twice a day instead of 3 times a day Continue methadone for intractable pain due to metastatic ovarian cancer Continue antinausea medication IV Advance diet as tolerated to regular DVT prophylaxis patient is on warfarin Follow-up with INR PT PTT Replenish electrolytes Code DNR/DNI Present on Admission?: Yes (2) Dehydration: Patient is moderately dehydrated Continue gentle IV fluid hydration which was started in the ER with normal viviana ine with potassium 20 mEq Continue monitoring CBC and CMP. Present on Admission?: Yes (3) Acute kidney injury: Patient baseline creatinine 0.75 and GFR of 78.5. Patient creatinine today is1.98 and GFR of 18.1 Avoid nephrotoxic agents, continue gentle IV fluid hydration since acute kidney injury is most likely due to nausea vomiting and dehydration. Monitor creatinine and GFR Present on Admission?: Yes (4) Acute hypokalemia: Replenish potassium as the above. Patient received several doses of K rider and continued with normal saline +20 M EQ potassium and 40 M EQ p.o. Monitor potassium closely Present on Admission?: Yes (5) Epigastric pain: Most likely due to nausea and vomiting, ongoing ovarian cancer, polypharmacy with opioids, slow bowel, overgrowth of bowel bacteria and fungi. Abdomen is soft There is no concern of ulcer or perforation, but continue monitoring vital signs and abdominal pain. Present on Admission?: Yes (6) High blood pressure: Blood pressure is well controlled, and somewhat on the lower side. Hold amlodipine 10 mg p.o. daily today while blood pressure is below 120/80. Also hold losartan hydrochlorothiazide 320/25 mg p.o. daily while blood pressure is below 120/80. Continue carvedilol 12.5 mg p.o. twice daily. 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 Ca1 pending. Consider discussing with oncology if any question Present on Admission?: Yes (8) Dyslipidemia: Continue atorvastatin 20 mg p.o. daily Present on Admission?: Yes (9) Diabetes type 2, uncontrolled: Ischemic control per pharmacy. Continue Accu-Cheks before meals and at bedtime. Use only two thirds of the home dose of insulin to prevent developing of hypoglycemia while patient is in the hospital and having nausea and vomiting. 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 Patient family reports that patient has increased lower abdominal pain, and that she feels nauseous and vomiting for the past 4 days. Family also reports loose bowel movement but has been explained that patient was constipated and she was taking in the past several days laxatives. Patient had a large bowel movement today which was mostly loose. Patient is followed by palliative care and the DNR/DNI status has been already determined in the previous visits per family. Patient regularly takes oxycodone, methadone and Ambien to cope with her pain and insomnia. Patient also sees psychologist and her next appointment is in November 11, 2019. Patient denies fever, chills, chest pain, shortness of breath, frequency, urgency, syncope or near syncope. Labs are reviewed: Sodium 136, potassium 2.9, chloride 99, anion gap 6, BUN 36, creatinine 1.98 which is a significant increase from patient baseline 0.75, GFR 28.1 glucose 197, calcium 8.4 ionized calcium 1.05, AST 30, ALT 14, CEA 125 [id number] from August 30, 2019, TSH pending. Decision was made to admit patient to [facility] for further evaluation and treatment of abdominal pain nausea vomiting associated with metastatic ovarian cancer, acute kidney injury, adjusting pain management. Allergies Allergy/AdvReac Type Severity Reaction Status Date / Time Sulfa (Sulfonamide Allergy Intermediate ITCHING Verified 11/07/19 14:13 Antibiotics) blue dye Allergy Unknown UNKNOWN Verified 11/07/19 14:13 citalopram Allergy Unknown UNKNOWN Verified 11/07/19 14:13 duloxetine Allergy Unknown UNKNOWN Verified 11/07/19 14:13 felodipine Allergy Unknown UNKNOWN Verified 11/07/19 14:13 fluoxetine Allergy Unknown UNKNOWN Verified 11/07/19 14:13 paroxetine Allergy Unknown UNKNOWN Verified 11/07/19 14:13 pollen extracts Allergy Unknown STUFFY Verified 11/07/19 14:13 NOSE CONGESTION pregabalin Allergy Unknown UNKNOWN Verified 11/07/19 14:13 sertraline Allergy Unknown UNKNOWN Verified 11/07/19 14:13 ANDREW Inhibitors AdvReac Unknown UNKNOWN Verified 11/07/19 14:13 Home Medications Home Medications Medication Instructions Recorded Confirmed Type amlodipine 10 mg PO DAILY 07/02/18 11/07/19 History carvedilol 12.5 mg PO BIDM 07/02/18 11/07/19 History oxycodone 5 - 10 mg PO Q4H PRN 07/02/18 11/07/19 History phytonadione (vitamin K1) 100 mcg 100 mcg PO MONWEDFRI tab 10/01/18 11/07/19 History tablet morphine 15 mg tablet,extended 60 mg PO TID tab 01/21/19 11/07/19 History release methadone 5 mg tablet 10 mg PO Q12H tab 02/18/19 11/07/19 History sertraline 25 mg tablet 62.5 mg PO DAILY tab 03/11/19 11/07/19 History glipizide 5 mg tablet 5 mg PO BID #180 tab 06/27/19 11/07/19 Rx ondansetron HCl 8 mg tablet 8 mg PO Q8H PRN tab 07/05/19 11/07/19 History prochlorperazine maleate 10 mg 10 mg PO Q6H PRN 07/05/19 11/07/19 History tablet atorvastatin 20 mg tablet 20 mg PO DAILY #90 tab 09/02/19 11/07/19 Rx clonazepam 0.5 mg tablet 0.5 mg PO HS PRN #90 tab 09/02/19 11/07/19 Rx valsartan 320 1 tab PO DAILY #90 tab 09/02/19 11/07/19 Rx mg-hydrochlorothiazide 25 mg tablet Trulicity 0.75 mg/0.5 mL 0.75 mg SUBCUT WK #2 ml NS 09/20/19 11/07/19 Rx subcutaneous pen injector cholecalciferol (vitamin D3) 2,000 2,000 units PO DAILY tab 10/09/19 11/07/19 History unit tablet docusate sodium 250 mg capsule 500 mg PO BID PRN cap 10/09/19 11/07/19 History flash glucose scanning reader #1 ea 10/10/19 10/10/19 History insulin glargine 100 unit/mL (3 80 units SQ UD PRN ml 10/10/19 11/07/19 History mL) subcutaneous pen polyethylene glycol 3350 17 17 gm PO DAILY PRN 10/10/19 11/07/19 History gram/dose oral powder warfarin 0 mg PO UD 11/07/19 11/07/19 History zolpidem 0 mg PO UD 11/07/19 11/07/19 History Past Med/Surg History Medical History Diabetes type 2, uncontrolled Dyslipidemia Heart disease (Chronic) High blood pressure (Chronic) Ovarian cancer (Chronic) Social History Feels Safe at Home: Yes Smoking Status: Former smoker Review of Systems Review of Systems: All systems reviewed & are unremarkable except as noted in HPI & below Physical Exam Constitutional: WD/WN, vitals as above well developed, + ill appearing and + frail appearing Eyes: PERRL, conjunctivae normal, anicteric sclerae ENMT: external ear and nose normal, oropharynx normal Neck: trachea midline, no thyromegaly Respiratory: normal respiratory effort, lungs clear to auscultation Cardiovascular: Heart Sounds: normal S1 and normal S2 Palpation: + palpable S3 Gastrointestinal (Abdomen): Inspection/Auscultation: + abdomen distended Percussion/Palpation: + abdomen tender and abdomen soft Musculoskeletal: no cyanosis or clubbing, extremities motor strength 5/5 Skin: no rashes, warm and dry Neurologic: patellar DTR's 2+ bilat, sensation intact Psychiatric: A+Ox3, euthymic affect Lymphatic: no cervical or axillary lymphadenopathy Results & Data Vital Signs (Past 12 Hours) Vital Signs Temp Pulse Pulse Resp BP BP Pulse Ox 11/07/19 16:30 66 22 95 11/07/19 16:15 61 13 129/66 97 11/07/19 16:04 61 13 11/07/19 15:31 60 14 93 11/07/19 15:30 60 17 129/62 92 11/07/19 15:13 60 20 101/57 L 95 11/07/19 15:05 60 19 101/57 L 96 11/07/19 15:00 60 17 96 11/07/19 14:30 60 18 95 11/07/19 14:00 61 21 98 11/07/19 13:35 62 14 95 11/07/19 13:30 67 21 114/61 11/07/19 13:17 36.8 C 63 20 97/62 L 99 Code Status & VTE Plan Code Status DNR/DNI VTE Prophylaxis Plan VTE Prophylaxis will be ordered: Yes PG Care Time/CCT Total # of Minutes Spent Total Time Spent with Patient: Total time spent is greater than 50% in coordination of care (as documented) at patient's floor/unit and/or counseling patient:
[2019-11-07] MEDS ORDERED: DEXTROSE 50% 50 ML SYRINGE IV PRN (17:54)
[2019-11-07] MEDS ORDERED: GLUCAGON FOR INJ 1 MG VIAL SQ PRN (17:54)
[2019-11-07] MEDS ORDERED: GLUCOSE 40% GEL 15 GM TUBE PO PRN (17:54)
[2019-11-07] MEDS ORDERED: GLUCOSE 10 TABS/TUBE PO PRN (17:54)
[2019-11-07] MEDS ORDERED: CARBOHYDRATES FOR HYPOGLYCEMIA PO PRN (17:54)
[2019-11-07] MEDS ORDERED: PHARMACY GLYCEMIC MGMT CONSULT PRN (18:08)
[2019-11-07] MEDS ORDERED: MAGNESIUM HYDROXIDE SUSP 30 ML UDC PO PRN (19:37)
[2019-11-07] MEDS ORDERED: ACETAMINOPHEN 325 MG TAB PO PRN (19:37)
[2019-11-07] MEDS ORDERED: ALUMINUM/MAGNESIUM SUSP 30 ML UDC PO PRN (19:37)
[2019-11-07] MEDS ORDERED: POLYETHYLENE (MIRALAX) 17 GM PACK PO PRN (19:37)
[2019-11-07] MEDS ORDERED: INSULIN GLARGINE SOLOSTAR 100 UNITS/ML 3 ML PEN SQ PRN (19:37)
[2019-11-07] MEDS ORDERED: clonazePAM 0.5 MG TAB PO PRN (19:37)
[2019-11-07] MEDS: NSS + 20MEQ KCL 20 MEQ/1,000 ML BAG IV SCH (20:00)
[2019-11-07 20:08] LABS: Magnesium 2.1 mg/dl (1.8-2.4)
[2019-11-07] MEDS: MoRPHine SULFATE CR 15 MG TABCR PO SCH (21:10)
[2019-11-07] MEDS: SERTRALINE HCL 50 MG TABLET PO SCH (21:56)
[2019-11-07] MEDS: METHADONE HCL 5 MG TAB PO SCH (21:56)
[2019-11-07] MEDS: DOCUSATE SODIUM 100 MG CAP PO SCH (21:57)
[2019-11-07] MEDS: ZOLPIDEM TARTRATE 10 MG TAB PO SCH (21:57)
[2019-11-07] MEDS: ATORVASTATIN 20 MG TAB PO SCH (21:59)
[2019-11-07] MEDS: INSULIN ASPART 100 UNITS/ML 3 ML PEN SC SCH (22:25)
[2019-11-08] MEDS: OXYCODONE HCL IR 5 MG TAB (IMMEDIATE RELEASE) PO PRN ×2 (00:20→09:02)
[2019-11-08] MEDS: INSULIN ASPART 100 UNITS/ML 3 ML PEN SC SCH ×6 (00:45→20:28)
[2019-11-08] MEDS: ONDANSETRON INJ 2 MG/ML 2 ML VIAL IV PRN ×3 (00:58→12:39)
[2019-11-08 06:02] LABS: Basophils # (auto) 0.01 K/uL (0-0.2); Basophils % (auto) 0.2 %; Eosinophils # (auto) 0.06 K/uL (0-0.5); Hematocrit (blood only) 38.9 % (37-47); Hemoglobin 13.4 g/dL (12.0-16.0); Immature Granulocytes # (auto) 0.01 K/uL (0.00-0.02); Immature Granulocytes % (auto) 0.2 %; Lymphocytes # (auto) 1.76 K/uL (1.2-3.4); Lymphocytes % (auto) 30.5 %; Mean Corpuscular Hemoglobin 34.3 pg (25-34); Mean Corpuscular Hgb Conc 34.4 g/dL (32-36); Mean Corpuscular Volume 99.5 fL (80-100); Mean Platelet Volume 9.9 fL (7.4-10.4); Monocytes # (auto) 0.54 K/uL (0.11-0.59); Monocytes % (auto) 9.4 %; Neutrophils # (auto) 3.39 K/uL (1.4-6.5); Neutrophils % (auto) 58.7 %; Platelet Count 156 K/uL (130-400); RDW Standard Deviation 47.1 fL (36.4-46.3); Red Blood Count 3.91 M/uL (4.2-5.4); White Blood Count 5.77 K/uL (4.8-10.8)
[2019-11-08 06:12] LABS: INR 1.5 (0.9-1.1); Prothrombin Time 14.5 Seconds (9.0-12.0)
[2019-11-08 06:14] LABS: Estimated Average Glucose 183 mg/dl
--- NOTE | 2019-11-08 06:16 | Electrocardiogram Report ---
Test Reason : Blood Pressure : / mmHG Vent. Rate : 060 BPM Atrial Rate : 066 BPM P-R Int : 336 ms QRS Dur : 108 ms QT Int : 478 ms P-R-T Axes : 000 -77 121 degrees QTc Int : 478 ms Poor data quality, interpretation may be adversely affected Atrial-paced rhythm with prolonged AV conduction Left axis deviation Inferior infarct (cited on or before 19-JAN-2012) Anterior infarct (cited on or before 19-JAN-2012) Prolonged QT Abnormal ECG When compared with ECG of 22-JUN-2018 16:24, T wave inversion more evident in Anterolateral leads Confirmed by Fco Henao ([id number]) on 11/08/2019 6:15:48 AM Referred By: REFERRED SELF Confirmed By:Fco Henao
[2019-11-08 06:41] LABS: Albumin Level 1.1 gm/dl (3.4-5.0); BUN Creatinine Ratio 20.2 (10-20); Creatinine Clr Calc Pharmacy 29.3 ml/min; Est GFR (African American) 35.3; Est GFR (Non-African American) 30.5; Potassium 3.2 mmol/L (3.5-5.1)
[2019-11-08 06:44] LABS: Albumin Globulin Ratio 0.2 (0.9-2); Bilirubin,Total 0.3 mg/dl (0.2-1); Globulin 4.6 gm/dl (2.5-4.0); Total Protein 5.7 gm/dl (6.4-8.2)
[2019-11-08] MEDS: PROCHLORPERAZINE MALEATE 10 MG TAB PO PRN (07:49)
[2019-11-08] MEDS: MoRPHine SULFATE CR 15 MG TABCR PO SCH ×2 (07:52→20:27)
[2019-11-08] MEDS: METHADONE HCL 5 MG TAB PO SCH ×3 (07:52→20:28)
[2019-11-08] MEDS: POTASSIUM CHLORIDE / WTR 10 MEQ/100 ML PLCT IV SCH ×2 (07:58→08:59)
[2019-11-08] MEDS: DOCUSATE SODIUM 100 MG CAP PO SCH ×3 (08:00→20:27)
[2019-11-08] MEDS: SERTRALINE HCL 50 MG TABLET PO SCH ×2 (08:01→12:42)
[2019-11-08] MEDS: ATORVASTATIN 20 MG TAB PO SCH (08:02)
[2019-11-08] MEDS: CHOLECALCIFEROL 1,000 UNITS TAB PO SCH ×2 (08:02→12:44)
[2019-11-08] MEDS: carvediloL 12.5 MG TAB PO SCH ×2 (08:03→16:42)
[2019-11-08] MEDS: NSS + 20MEQ KCL 20 MEQ/1,000 ML BAG IV SCH ×2 (08:37→20:28)
[2019-11-08] MEDS ORDERED: INSULIN GLARGINE SOLOSTAR 100 UNITS/ML 3 ML PEN SC SCH (09:00)
[2019-11-08] MEDS ORDERED: AMLODIPINE BESYLATE 5 MG TAB PO SCH (09:00)
[2019-11-08] MEDS ORDERED: hydroCHLOROthiazide 25 MG TAB PO SCH (09:00)
[2019-11-08] MEDS ORDERED: NON-FORMULARY MEDICATION (Valsartan-Hydrochlorothiazide [Diovan Hct] 1 TAB) PO SCH (09:00)
[2019-11-08] MEDS ORDERED: VALSARTAN 80 MG TAB PO SCH (09:00)
--- NOTE | 2019-11-08 09:54 | Hospitalist Progress Note ---
Date of Service November 08, 2019 Assessment & Plan (1) Nausea & vomiting: Ms. Horne is a 74-year-old female with a past medical history of papillary serous ovarian carcinomaWith recurrent malignant ascites, IgA MGUS, chronic anticoagulation, hyperlipidemia, hypertension and type 2 diabetes mellitus who presents to [facility] due to decreased oral intake and worsening abdominal pain. Nausea/Vomiting/Dehydration/Abdominal Pain -CT abdomen and pelvis without any concerning acute findings, and in fact shows an improvement in her peritoneal implants -no tenderness to palpation on examination of her abdomen, even with deep palpation -discussed patient's case with Dr. Herrera (thank you for recommendations), who follows with her in clinic -> suspect patient's pain is worsened by psychological factors, given her benign abdominal exam and lack of findings on imaging -continue her home chronic pain regimen, including methadone 10mg TID, MS-contin 30mg BID and 5mg of oxycodone prn -continue prn zofran -monitor electrolytes Dehydration: -Continue gentle IV fluid hydration which was started in the ER with normal saline with potassium 20 mEq at 80 mls/hr Acute kidney injury: -Patient baseline creatinine 0.75 -creatinine on admission 1.98, improved to 1.64 today -Avoid nephrotoxic agents, continue gentle IV fluid hydration since acute kidney injury is most likely due to poor p.o. intake secondary to nausea and vomiting Acute hypokalemia: -potassium low on admission, continue repletion with K-riders and maintenance IVF Hypertension -patient's outpatient regimen consists of amlodipine 10 mg daily, valsartan 320mg daily, hydrochlorothiazide 25 mg daily, carvedilol 12.5 mg p.o. twice daily -holding valsartan and HCTZ given LEROY -hold amlodipine given low to normotensive without it -continue home carvedilol Hx of PE -in May 2018 -patient chronically on warfarin, continue home regimen -hold home vitamin K given patient is subtherapeutic with an INR of 1.5 Ovarian cancer: -Patient has stage IIIc papillary serous ovarian carcinoma with recurrent malignant ascites -not currently undergoing chemotherapy Dyslipidemia: -Continue atorvastatin 20 mg p.o. daily Diabetes type 2 -glycemic control per pharmacy. Continue Accu-Cheks before meals and at bedtime. -Use only two thirds of the home dose of insulin to prevent developing of hypoglycemia while patient is in the hospital and having nausea and vomiting. CODE STATUS: DNR/DNI DVT Prophylaxis: on warfarin Disposition: remains on med/surg. Anticipate d/c tomorrow (2) Dehydration: (3) Acute kidney injury: (4) Acute hypokalemia: (5) Epigastric pain: (6) Ovarian cancer: (7) High blood pressure: (8) Heart disease: (9) Dyslipidemia: (10) Diabetes type 2, uncontrolled: Supervising Physician Co-Signing Physician Notes I personally examined the patient and verified all valadez points of history and exam, discussed case, and agree with decision making with Dr Fischer. No new complaints. Case discussed extensively with resident as well as with palliative care. Input appreciated from palliative. No other new issues. Vitals noted, in general she is awake and alert pleasant no distress. HEENT normocephalic atraumatic mucous membranes are moist. Breathing unlabored no accessory muscle use good effort. Skin shows no rashes no pallor or icterus. Acute renal failuremore than likely from poor oral intake. Improving with IV fluids. Continue supportive care. Consider discontinuation of hydrochloroth iazide as part of her antihypertensive regimen. Her blood pressures are running pretty good, and while thiazide certainly improved morbidity and mortality, the fact that it may have contributed to her dehydration with her suspect oral intake makes it potentially one to stop. Otherwise as above Subjective Ms. Horne reports that she continues to have abdominal pain and nausea. She denies any fever, chills, diarrhea or emesis overnight. She states she would like to attempt eating a full breakfast this AM, and see how she does. Review of Systems Constitutional: + fatigue and + anorexia; no fever and no chills Respiratory: no cough, no dyspnea and no wheezing Cardiovascular: no chest pain, no palpitations and no edema Gastrointestinal: + abdominal pain, + nausea and + vomiting Physical Exam Constitutional: WD/WN, vitals as above ENMT: external ear and nose normal, oropharynx normal Respiratory: normal respiratory effort, lungs clear to auscultation Cardiovascular: RRR, no murmur, no edema Gastrointestinal (Abdomen): Percussion/Palpation: abdomen soft; abdomen nontender, no guarding and abdomen not rigid Skin: no rashes, warm and dry Psychiatric: A+Ox3, euthymic affect Results & Data Vital Signs (Past 12 Hours) Vital Signs Temp Pulse Pulse Resp BP Pulse Ox 11/08/19 07:51 36.4 C L 60 18 119/80 93 11/07/19 22:30 36.8 C 60 18 123/68 93 Resident Activity Tracking Resident Involvement: Resident Care Provided Care Provided: Adult Hospital Medicine
--- NOTE | 2019-11-08 11:27 | Pharmacy Report ---
Glycemic Control Consultation - Date of Service November 08, 2019 - Scope Scope: Glycemic Pharmacist consulted by Dr Garcia on 11/07/19 for glycemic control and to write orders per [facility] inpatient glycemic control protocol - Objective Weight: 70.6 kg Accuchecks BSG (last 24hrs): 11/07/19 11/07/19 11/07/19 14:20 14:22 19:34 Glucose 197 H POC Glucose 209 H POC Glucose (other) 199 H 11/07/19 11/08/19 11/08/19 23:58 04:07 05:18 Glucose 101 H POC Glucose 94 90 POC Glucose (other) 11/08/19 07:56 Glucose POC Glucose 184 H POC Glucose (other) Laboratory Data (last 24hrs): 11/07/19 11/08/19 14:20 05:18 Potassium 2.9 L 3.2 L Carbon Dioxide 31 30 Anion Gap 6.0 4.0 Creatinine 1.98 H 1.64 H D Est Cr Clr Drug Dosing 24.2 29.3 HbA1c: Hemoglobin A1c 8.0 % (4.5-5.6) H 11/08/19 05:18 - Recent Pertinent Medications Outpatient Anti-diabetic Regimen: * Lantus prn 70 units when BSG above 250 or 300 * Trulicity 0.75 mg weekly * Glipizide 5 mg PO BID * A1c = 8% on 11/08/19 Risk Factors for Insulin Resistance: * Steroids: None * Infection: None * IVF: NS + 20 KCL at 80 ml/hr * Diet: Regular - Assessment & Plan Assessment & Plan: ASSESSMENT: * 74 y/o F admitted for N/V/abdominal pain and currently with LEROY. Patient has metastatic ovarian cancer. * Patient's diabetes managed at home with Trulicity weekly, possibly Lantus prn and Glipizide. Holding Trulicity and Glipizide while in-patient. * Oral agents are not recommended for inpatient use d/t drug interactions, changing PO intake, and difficulty titrating for acute hyper/hypoglycemia. ADA recommends re-initiating outpatient oral agents 1-2 days prior to discharge if/when appropriate if they were held on admission. Utilizing SQ basal bolus insulin regimen which is the recommended regimen for inpatient glycemic control. * BSGs on admission yesterday were high, Novolog bolus with CF/CR was started based on weight and stress factor of 3 on insulin SQ calculator. * Patient's said that he gives patient Lantus 70 units only as needed when her BSG is above 250 or 300 when she eats a lot of candy/sugar. He said this happens maybe around once a month or so. He gives her the Trulicity inje ction and Glipizide BID as prescribed. * Overnight pt's BSGs were in the 90s. Fasting BSG this AM = 184. Lantus was ordered today based on weight and between stress of 2 and 3. * Spoke to nurse today, patient has been eating very little if anything. She threw up some of her breakfast this morning. Pt has been c/o nausea constantly. Will loosen carb ratio with dinner today. PLAN FOR INPATIENT GLYCEMIC CONTROL: * Holding outpatient oral diabetes medications and Trulicity. * Basal insulin * Lantus 15 units SQ QAM * Bolus insulin: loosened CR * NovoLog per scale ACHS or Q6hrs while NPO * Goal Range: Low 120 mg/dL - High 150 mg/dL * Correction Factor: 25 mg/dL/unit * Nutritional / Prandial insulin per carb ratio of 1 unit per 10 grams CHO c onsumed * Please note that the plan above was derived based on current level of insulin resistance and hospital stress. These recommendations are appropriate for inpatient admission only. Plan of care upon discharge will need to be reassessed to avoid potential outpatient hypo/hyperglycemia. Thank you.
[2019-11-08] MEDS ORDERED: OXYCODONE HCL IR 5 MG TAB (IMMEDIATE RELEASE) PO PRN (13:10)
--- NOTE | 2019-11-08 14:39 | Palliative Care Consultation ---
Date of Consultation November 08, 2019 Assessment & Plan (1) Cancer associated pain: Patient has been followed by me in palliative care clinic since December 2018. Patient is a 74-year-old female with ovarian cancer diagnosed in February 2018. Have been following patient in palliative care clinic for pain management. When I met patient she had been on significant amount of opioids to the point of constant sedation. Patient was started on methadone with increased alertness, however has been reluctant to wean down on her morphine. Suspect component of emotional pain-started Zoloft and titrated up to 75 mg daily. Patient continues to complain of terrible generalized pain and/or abdominal pain whenever awake. Had repeat CT scan on 11/07 which showed slightly decreased and abdominal mass, no new disease. Discussed findings with and patient at bedside. Discussed with patient and the need to decrease her long-acting morphine-patient did not feel she could do that due to pain-can palpate her abdomen with significant pressure without any wincing or pain reaction. Discussed how the pain medicines were sedating-she responded "I like it that way". understands that she prefers to be sedated-discussed that using opioids is not a medically ethical way to do that. Patient does have an appointment scheduled for this coming Monday with a psychologist. -Patient with poor appetite, drinks milkshakes- does add Glucerna to improve nutrition. Patient's weight has been stable at 153-156 pounds. Patient has been tried on Decadron at titrated to 4 mg daily without any change in her appetite, she has also tried medical marijuana -also no change in her appetite. - Patient has very little interest in outside activities her reports her main activity prior to her illness was shopping. Have encouraged patient's to have friends come visit-she does well when distracted with very little complaints of pain or discomfort. -Will decrease her MS Contin to 30 mg twice daily for a week, then decrease to 30 mg daily for a week, and then discontinue. We will continue her methadone at 10 mg 3 times daily, and monitor PRN oxycodone use. (2) Poor appetite: Patient weight is stable with her current p.o. intake -No effect on appetite with Decadron or medical marijuana. (3) Anxiety and depression: Patient started on Zoloft-dose has been titrated. Will discharge home on Zoloft 100 mg daily. Patient has appointment with psychology on Monday --Await their recommendations. (4) Ovarian cancer: Has been off chemo for several months-scan showing some decrease in size of previous mass, no new lesions. History of Present Illness Reason for Consultation: Established palliative clinic patient-assist with pain management Requesting Physician: Dr. Garcia Attending Physician: Papo Valdez, DO History of Present Illness Patient has been followed by me in palliative care clinic since December 2018. Patient is a 74-year-old female with ovarian cancer diagnosed in February 2018. Have been following patient in palliative care clinic for pain management. When I met patient she had been on significant amount of opioids to the point of constant sedation. Patient was started on methadone with increased alertness, however has been reluctant to wean down on her morphine. Suspect component of emotional pain-started Zoloft and titrated up to 75 mg daily. Patient continues to complain of terrible generalized pain and/or abdominal pain whenever awake. Had repeat CT scan on 11/07 which showed slightly decreased and abdominal mass, no new disease. Discussed findings with and patient at bedside. Discussed with patient and the need to decrease her long-acting morphine-patient did not feel she could do that due to pain-can palpate her abdomen with significant pressure without any wincing or pain reaction. Discussed how the pain medicines were sedating-she responded "I like it that way ". understands that she prefers to be sedated-discussed that using opioids is not a medically ethical way to do that. Patient does have an appointment scheduled for this coming Monday with a psychologist. -Patient with poor appetite, drinks milkshakes- does add Glucerna to improve nutrition. Patient's weight has been stable at 153-156 pounds. Patient has been tried on Decadron at titrated to 4 mg daily without any change in her appetite, she has also tried medical marijuana -also no change in her appetite. - Patient has very little interest in outside activities her reports her main activity prior to her illness was shopping. Have encouraged patient's to have friends come visit-she does well when distracted with very little complaints of pain or discomfort. -Patient also notes nausea-constipation may play a role. -Collaborated with attending team Allergies Allergy/AdvReac Type Severity Reaction Status Date / Time Sulfa (Sulfonamide Allergy Intermediate ITCHING Verified 11/07/19 14:13 Antibiotics) blue dye Allergy Unknown UNKNOWN Verified 11/07/19 14:13 citalopram Allergy Unknown UNKNOWN Verified 11/07/19 14:13 duloxetine Allergy Unknown UNKNOWN Verified 11/07/19 14:13 felodipine Allergy Unknown UNKNOWN Verified 11/07/19 14:13 fluoxetine Allergy Unknown UNKNOWN Verified 11/07/19 14:13 paroxetine Allergy Unknown UNKNOWN Verified 11/07/19 14:13 pollen extracts Allergy Unknown STUFFY Verified 11/07/19 14:13 NOSE CONGESTION pregabalin Allergy Unknown UNKNOWN Verified 11/07/19 14:13 sertraline Allergy Unknown UNKNOWN Verified 11/07/19 14:13 ANDREW Inhibitors AdvReac Unknown UNKNOWN Verified 11/07/19 14:13 Home Medications Home Medications Medication Instructions Recorded Confirmed Type amlodipine 10 mg PO DAILY 07/02/18 11/07/19 History carvedilol 12.5 mg PO BIDM 07/02/18 11/07/19 History oxycodone 5 - 10 mg PO Q4H PRN 07/02/18 11/07/19 History phytonadione (vitamin K1) 100 mcg 100 mcg PO MONWEDFRI tab 10/01/18 11/07/19 History tablet morphine 15 mg tablet,extended 60 mg PO TID tab 01/21/19 11/07/19 History release methadone 5 mg tablet 10 mg PO Q12H tab 02/18/19 11/07/19 History sertraline 25 mg tablet 62.5 mg PO DAILY tab 03/11/19 11/07/19 History glipizide 5 mg tablet 5 mg PO BID #180 tab 06/27/19 11/07/19 Rx ondansetron HCl 8 mg tablet 8 mg PO Q8H PRN tab 07/05/19 11/07/19 History prochlorperazine maleate 10 mg 10 mg PO Q6H PRN 07/05/19 11/07/19 History tablet atorvastatin 20 mg tablet 20 mg PO DAILY #90 tab 09/02/19 11/07/19 Rx clonazepam 0.5 mg tablet 0.5 mg PO HS PRN #90 tab 09/02/19 11/07/19 Rx valsartan 320 1 tab PO DAILY #90 tab 09/02/19 11/07/19 Rx mg-hydrochlorothiazide 25 mg tablet Trulicity 0.75 mg/0.5 mL 0.75 mg SUBCUT WK #2 ml NS 09/20/19 11/07/19 Rx subcutaneous pen injector cholecalciferol (vitamin D3) 2,000 2,000 units PO DAILY tab 10/09/19 11/07/19 History unit tablet docusate sodium 250 mg capsule 500 mg PO BID PRN cap 10/09/19 11/07/19 History flash glucose scanning reader #1 ea 10/10/19 10/10/19 History insulin glargine 100 unit/mL (3 See Rx Instructions .ROUTE 10/10/19 11/08/19 History mL) subcutaneous pen .COMPLEX PRN ml polyethylene glycol 3350 17 17 gm PO DAILY PRN 10/10/19 11/07/19 History gram/dose oral powder warfarin 0 mg PO UD 11/07/19 11/07/19 History zolpidem 0 mg PO UD 11/07/19 11/07/19 History Patient History Medical History Diabetes type 2, uncontrolled Dyslipidemia Heart disease (Chronic) High blood pressure (Chronic) Ovarian cancer (Chronic) Social History Preferred Language: Japanese Communication Ability: Effective 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 Physical Exam Physical Exam: PE: Patient awake and alert, appears comfortable in bed, no pain behaviors with ambulation HEENT: EOMI, hearing within normal limits Respiratory: Unlabored, clear breath sounds CV: Regular rate Abdomen: soft, no pain behaviors with deep palpation Extremities: Full range of motion, generalized weakness. Neuro: No focal deficits Psych: Depressed mood and affect, anxious Results & Data Vital Signs (Past 12 Hours) Vital Signs Temp Pulse Resp BP Pulse Ox 11/08/19 07:51 97.5 F L 60 18 119/80 93 PG Care Time/CCT Total # of Minutes Spent Total Time Spent with Patient: Total time spent is greater than 50% in coordination of care (as documented) at patient's floor/unit and/or counseling patient: Time Spent Attending Total time 70 minutes with greater than 50% of time spent at bedside reviewing plan of care
[2019-11-08] MEDS ORDERED: WARFARIN SOD 5 MG TAB PO SCH (16:00)
--- NOTE | 2019-11-08 17:25 | Billing Data ---
Date of Service November 08, 2019 Coding Level of Care Code 31200 Subseq Hosp Care Lvl 3
[2019-11-08] MEDS: ZOLPIDEM TARTRATE 10 MG TAB PO SCH (20:27)
[2019-11-09] MEDS: PROCHLORPERAZINE MALEATE 10 MG TAB PO PRN (00:26)
[2019-11-09] MEDS ORDERED: HEPARIN 100 UNIT/ML 5ML FLUSH FLUSH PRN (01:14)
[2019-11-09] MEDS: ONDANSETRON INJ 2 MG/ML 2 ML VIAL IV PRN (02:57)
[2019-11-09 06:20] LABS: INR 1.6 (0.9-1.1); Prothrombin Time 15.6 Seconds (9.0-12.0)
[2019-11-09 06:50] LABS: BUN Creatinine Ratio 21.6 (10-20); Calcium 7.9 mg/dl (8.5-10.1); Creatinine Clr Calc Pharmacy 45.3 ml/min; Est GFR (African American) 59.9; Est GFR (Non-African American) 51.7; Potassium 2.9 mmol/L (3.5-5.1)
[2019-11-09] MEDS ORDERED: POTASSIUM CHLORIDE 20 MEQ TABCR PO STA (07:13)
--- NOTE | 2019-11-09 07:16 | Discharge Summary ---
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 Patient family reports that patient has increased lower abdominal pain, and that she feels nauseous and vomiting for the past 4 days. Family also reports loose bowel movement but has been explained that patient was constipated and she was taking in the past several days laxatives. Patient had a large bowel movement today which was mostly loose. Patient is followed by palliative care and the DNR/DNI status has been already determined in the previous visits per family. Patient regularly takes oxycodone, methadone and Ambien to cope with her pain and insomnia. Patient also sees psychologist and her next appointment is in November 11, 2019. Patient denies fever, chills, chest pain, shortness of breath, frequency, urgency, syncope or near syncope. Labs are reviewed: Sodium 136, potassium 2.9, chloride 99, anion gap 6, BUN 36, creatinine 1.98 which is a significant increase from patient baseline 0.75, GFR 28.1 glucose 197, calcium 8.4 ionized calcium 1.05, AST 30, ALT 14, CEA 125 [id number] from August 30, 2019, TSH pending. Decision was made to admit patient to [facility] for further evaluation and treatment of abdominal pain nausea vomiting associated with metastatic ovarian cancer, acute kidney injury, adjusting pain management. Admission Exam Per Admitting Provider Constitutional: WD/WN, vitals as above well developed, + ill appearing and + frail appearing Eyes: PERRL, conjunctivae normal, anicteric sclerae ENMT: external ear and nose normal, oropharynx normal Neck: trachea midline, no thyromegaly Respiratory: normal respiratory effort, lungs clear to auscultation Cardiovascular: Heart Sounds: normal S1 and normal S2 Palpation: + palpable S3 Gastrointestinal (Abdomen): Inspection/Auscultation: + abdomen distended Percussion/Palpation: + abdomen tender and abdomen soft Musculoskeletal: no cyanosis or clubbing, extremities motor strength 5/5 Skin: no rashes, warm and dry Neurologic: patellar DTR's 2+ bilat, sensation intact Psychiatric: A+Ox3, euthymic affect Lymphatic: no cervical or axillary lymphadenopathy Principal Diagnosis LEROY Discharge Exam Constitutional WD/WN, vitals as above Respiratory normal respiratory effort, lungs clear to auscultation Cardiovascular RRR, no murmur, no edema Gastrointestinal (Abdomen) Percussion/Palpation: abdomen soft; abdomen nontender, no guarding and abdomen not rigid Psychiatric A+Ox3, euthymic affect Discharge Data Allergies Allergy/AdvReac Type Severity Reaction Status Date / Time Sulfa (Sulfonamide Allergy Intermediate ITCHING Verified 11/07/19 14:13 Antibiotics) blue dye Allergy Unknown UNKNOWN Verified 11/07/19 14:13 citalopram Allergy Unknown UNKNOWN Verified 11/07/19 14:13 duloxetine Allergy Unknown UNKNOWN Verified 11/07/19 14:13 felodipine Allergy Unknown UNKNOWN Verified 11/07/19 14:13 fluoxetine Allergy Unknown UNKNOWN Verified 11/07/19 14:13 paroxetine Allergy Unknown UNKNOWN Verified 11/07/19 14:13 pollen extracts Allergy Unknown STUFFY Verified 11/07/19 14:13 NOSE CONGESTION pregabalin Allergy Unknown UNKNOWN Verified 11/07/19 14:13 sertraline Allergy Unknown UNKNOWN Verified 11/07/19 14:13 ANDREW Inhibitors AdvReac Unknown UNKNOWN Verified 11/07/19 14:13 Consultations 11/07/19 16:17 ED Decision to Admit Stat 11/07/19 19:37 Consult Palliative Care Routine Ordered Studies 11/07/19 15:19 CT abd pelvis wo con Stat Hospital Course (1) Nausea & vomiting: Ms. Horne is a 74-year-old female with a past medical history of papillary serous ovarian carcinomaWith recurrent malignant ascites, IgA MGUS, chronic anticoagulation, hyperlipidemia, hypertension and type 2 diabetes mellitus who presents to [facility] due to decreased oral intake and worsening abdominal pain. Nausea/Vomiting/Dehydration/Abdominal Pain -CT abdomen and pelvis without any concerning acute findings, and in fact shows an improvement in her peritoneal implants -no tenderness to palpation on examination of her abdomen, even with deep palpation -discussed patient's case with Dr. Herrera who follows with her in clinic -> suspect patient's pain is worsened by psychological factors, given her benign abdominal exam and lack of findings on imaging -continue her home chronic pain regimen, including methadone 10mg TID, MS-contin 30mg BID (x 1 week, and then taper to daily x1 week and then stop) and 5mg of oxycodone prn -continue prn zofran Acute kidney injury -Patient baseline creatinine 0.75 -creatinine on admission was 1.98 which improved to 1.06 -treated with gentle IV fluid hydration since acute kidney injury was most likely due to poor p.o. intake secondary to nausea and vomiting Acute hypokalemia: -potassium low on admission, repleted with oral and IV potassium chloride -potassium 4.1 on discharge -Magnesium normal at 2.1 Hypertension -patient's outpatient regimen consists of amlodipine 10 mg daily, valsartan 320mg daily, hydrochlorothiazide 25 mg daily, carvedilol 12.5 mg p.o. twice daily -patient's BP was low-normal whilst in the hospital, even while holding holding amlodipine, valsartan and HCTZ -discontinue home amlodipine and HCTZ (may worsen dehydration/LEROY given patient's p.o. intake has decreased) -continue home carvedilol and start valsartan 80mg daily for renal protection -f/u in clinic to determine if BP medications need to be re-escalated Hx of PE -in May 2018 -patient chronically on warfarin, continue home regimen -INR subtherapeutic at 1.6 on d/c, f/u INR in clinic Ovarian cancer: -Patient has stage IIIc papillary serous ovarian carcinoma with recurrent malignant ascites -not currently undergoing chemotherapy Dyslipidemia: -Continue atorvastatin 20 mg p.o. daily Depression -increased sertraline from 75mg daily to 100mg daily -patient has f/u with psychology on Monday Diabetes type 2 -continue home regimen CODE STATUS: DNR/DNI DVT Prophylaxis: on warfarin Disposition: Discharged home w/home health (2) Dehydration: (3) Acute kidney injury: (4) Acute hypokalemia: (5) Epigastric pain: (6) Ovarian cancer: (7) High blood pressure: (8) Heart disease: (9) Dyslipidemia: (10) Diabetes type 2, uncontrolled: Total Time Total Time Spent Total Time Spent (In Minutes): <30 Discharge Plan Discharge Items Patient Disposition: Home - Home Health Services Reason For Visit: ABDOMINAL PAIN,NAUSEA,DEHYDRATION Discharge Diagnosis: Dehydration Activity: Resume your previous activity Non-emergency contact: Primary Care Provider Call non-emergency contact if: you have any medication questions, your symptoms worsen and your temperature is above 101 Follow-up/Referrals: Alex Campuzano MD [Primary Care Provider] - Diet: Carb Consistent or DM2 Addtl Attending Provider Instructions: Ms. Horne, you were admitted to [facility] due to dehydration, causing an elevation in your kidney numbers. We treated you with IV fluids, and your kidney numbers soon returned to normal. You were seen by Dr. Herrera, who made a couple of recommendations for you, including increasing your sertraline to 100mg a day, which will hopefully improve your mood. Please keep your appointment with psychology on Monday. It also helps to spend time with family and friends and we encourage this! Your blood pressure was low while you were in the hospital and we discontinued two of your blood pressure medications - your amlodipine and your hydrochlorothiazide. Please keep these medications, as you made need them in the future (hopefully not!). We have also lowered the dose of your valsartan from 320mg to 80mg, as this is an important medication to take, due to the fact that it protects your kidneys. Please follow up with your primary care doctor next week, as they can recheck your blood pressure and ensure it continues to stay within normal limits. With regards to your pain medications - please take your methadone and oxycodone as prescribed. The goal is for you to take MS Contin 30 mg twice a day for a week, then decrease to 30 mg once a day for a week, and then discontinue it. If you have any fever, chills, intractable nausea and vomiting, and are unable to keep any food down, please seek medical attention. Otherwise, we wish you all the best! Pending Studies at Discharge: No Stand-Alone Forms: [facility], Smoking Cessation Medications and DC Order Prescriptions: New valsartan [Diovan] 80 mg Tablet 80 mg PO QAM Qty: 30 RF: 2 morphine 15 mg Tablet Extended Release 30 mg PO BID 30 Days Qty: 120 RF: 0 sertraline 100 mg tablet 100 mg PO DAILY 30 Days Qty: 30 RF: 3 Continued phytonadione (vitamin K1) 100 mcg tablet 100 mcg PO MONWE RF: 0 ondansetron HCl [Zofran] 8 mg tablet 8 mg PO Q8H PRN (Reason: nausea and vomiting) RF: 0 prochlorperazine maleate [Compazine] 10 mg tablet 10 mg PO Q6H PRN (Reason: nausea and vomiting) RF: 0 carvedilol 12.5 mg Tablet 12.5 mg PO BIDM RF: 0 oxycodone 5 mg Tablet 5 - 10 mg PO Q4H PRN (Reason: Pain) RF: 0 polyethylene glycol 3350 [Miralax] 17 gram/dose powder 17 gm PO DAILY PRN (Reason: Constipation) RF: 0 methadone 5 mg tablet 10 mg PO Q12H RF: 0 glipizide 5 mg tablet 5 mg PO BID Qty: 180 RF: 3 atorvastatin 20 mg tablet 20 mg PO DAILY Qty: 90 RF: 1 clonazepam 0.5 mg tablet 0.5 mg PO HS PRN (Reason: Sleep) Qty: 90 RF: 0 Trulicity 0.75 mg/0.5 mL pen injector 0.75 mg subcut WK Qty: 2 RF: 1 cholecalciferol (vitamin D3) 2,000 unit tablet 2,000 units PO DAILY RF: 0 docusate sodium 250 mg capsule 500 mg PO BID PRN (Reason: Constipation) RF: 0 (DME) [employer] 14 Day [place] misc See Rx Instructions .ROUTE .MEDSUPPLY Qty: 1 RF: 0 warfarin 5 mg tablet 0 mg PO UD RF: 0 Changed zolpidem 10 mg tablet 5 mg PO UD Qty: 0 RF: 0 Discontinued sertraline [Zoloft] 25 mg tablet 62.5 mg PO DAILY RF: 0 amlodipine 10 mg Tablet 10 mg PO DAILY RF: 0 morphine 15 mg tablet extended release 60 mg PO TID RF: 0 valsartan-hydrochlorothiazide [Diovan HCT] 320-25 mg tablet 1 tab PO DAILY Qty: 90 RF: 1 Discharge Orders: Discharge Order (Routine); Ordered 11/09/19 Ordered By: Demarcus Fischer Admission Data Admit Date/Time: 11/07/19 17:41 Attending Provider: Papo Valdez Admit Provider: Lucy Garcia Primary Care Provider: Alex Campuzano Other Providers: Lucy Garcia ; Daniela Herrera Other Interventions: Discharge Summary Assessment (RN) Last Done: 11/09/19 13:39 DC Date/Time DO NOT enter until pt leaves facility: 11/09/19 15:38 Supervising Physician Co-Signing Physician Notes I personally examined the patient and verified all valadez points of history and exam, discussed case, and agree with decision making with Dr Fischer. No new complaints. labs discussed. present. pt and feel pt appropriate for discharge. Vitals noted, in general she is awake and alert pleasant no distress. HEENT normocephalic atraumatic mucous membranes are moist. Breathing unlabored no accessory muscle use good effort. Skin shows no rashes no pallor or icterus. Acute renal failuremore than likely from poor oral intake. Improved with IV fluids. Continue supportive care. see below w HTN HTN - reduce meds as above. follow closely as outpt - but likely lower BP due to change in intake/etc. Otherwise as above Resident Activity Tracking Resident Involvement: Resident Care Provided Care Provided: Adult Hospital Medicine
[2019-11-09] MEDS: ATORVASTATIN 20 MG TAB PO SCH (08:40)
[2019-11-09] MEDS: CHOLECALCIFEROL 1,000 UNITS TAB PO SCH (08:40)
[2019-11-09] MEDS: POTASSIUM CHLORIDE / WTR 10 MEQ/100 ML PLCT IV SCH ×3 (08:44→11:07)
[2019-11-09] MEDS: INSULIN ASPART 100 UNITS/ML 3 ML PEN SC SCH ×2 (08:57→12:43)
[2019-11-09] MEDS ORDERED: VALSARTAN 80 MG TAB PO SCH (09:00)
[2019-11-09] MEDS ORDERED: SERTRALINE HCL 50 MG TABLET PO SCH (09:00)
[2019-11-09] MEDS: NSS + 20MEQ KCL 20 MEQ/1,000 ML BAG IV SCH (09:10)
[2019-11-09] MEDS: MoRPHine SULFATE CR 15 MG TABCR PO SCH (09:16)
[2019-11-09] MEDS: METHADONE HCL 5 MG TAB PO SCH ×2 (09:17→13:57)
[2019-11-09] MEDS: DOCUSATE SODIUM 100 MG CAP PO SCH (09:17)
[2019-11-09] MEDS: carvediloL 12.5 MG TAB PO SCH (10:36)
[2019-11-09 12:45] LABS: Calcium 7.7 mg/dl (8.5-10.1); Creatinine Clr Calc Pharmacy 44.4 ml/min; Est GFR (African American) 58.6; Est GFR (Non-African American) 50.5; Potassium 4.1 mmol/L (3.5-5.1)
[2019-11-09] MEDS ORDERED: WARFARIN SOD 2.5 MG TAB PO SCH (16:00)
--- NOTE | 2019-11-09 17:43 | Billing Data ---
Date of Service November 09, 2019 Coding Level of Care Code D/C Day Management <30 mins
== END 2019-11-09 15:38 | disposition home health service (06) | DRG 683 ==
LOC: ED 13:09 → 2W 17:41 → SUATTDRO 17:41 → 2W 18:56 → 4W 11-08 01:25